=== PATIENT | male | born 1950 | race Caucasian/White ===

== ENCOUNTER 2023-07-25 20:34 | Emergency (ER) | payer MEDICARE, BC, SELFPAY ==
[2023-07-25 20:37] VITALS: BP 158/89; PULSE 62; RESP 18; TEMP 36.7; O2SAT 97; BMI 27.4
--- NOTE | 2023-07-25 20:56 | CRLHL7_ITS ---
For Patients: As a result of the Cures Act, medical imaging exams and procedure reports are released immediately into your electronic medical record. You may view this report before your referring provider. If you have questions, please contact your health care provider. INDICATION: Dog bite TECHNIQUE: Forearm radiograph 2 views right COMPARISON: None FINDINGS: Bone: No acute fractures or aggressive bone lesions are identified. Joint: The visualized radiocarpal and elbow joints are unremarkable, but the elbow joint is not profiled. If there is pain or tenderness in this region, dedicated views of the elbow are recommended. Soft tissue: Soft tissue gas from puncture or laceration wound is seen in the distal forearm. No radiopaque foreign bodies are seen. IMPRESSION: 1. No acute osseous injuries or abnormalities are noted. Dictated by Aubrey Bruno MD @ 07/25/2023 9:46:45 PM Dictated by: Aubrey Bruno MD @ 07/25/2023 21:46:51 (Electronically Signed)
--- NOTE | 2023-07-25 20:58 | ED_ITS ---
HPI - Animal Bite General Date Seen: 07/25/23 Chief Complaint: Animal Bite Stated Complaint: Left forearm dog bite Time Seen by Provider: 07/25/23 20:52 Source: patient Mode of arrival: ambulatory Limitations: no limitations History of Present Illness HPI narrative: Patient is a 73-year-old male with no pertinent medical problems presenting to emergency department for a right forearm dog bite. He states his is daughter as fully vaccinated has never act aggressively before. States he was trying to grab something near his dog when the dog got startled and bit him. No other concerns at this time. States he came in because there is a open laceration to forearm right thinks needs close. No other concerns at this time. They did not notice any chip or missing teeth from the dog after this Related Data Home Medications Medication Instructions Recorded Confirmed allopurinol 100 mg tablet 200 mg PO DAILY 07/25/23 07/25/23 oxybutynin chloride 5 mg 5 mg PO DAILY 07/25/23 07/25/23 tablet,extended release 24 hr Allergies Allergy/AdvReac Type Severity Reaction Status Date / Time amoxicillin [From Augmentin] Allergy Unknown Verified 07/25/23 20:43 clavulanic acid Allergy Unknown Verified 07/25/23 20:43 [From Augmentin] sulfamethoxazole Allergy Unknown Verified 07/25/23 20:43 [From Bactrim] trimethoprim [From Bactrim] Allergy Unknown Verified 07/25/23 20:43 ciprofloxacin [From Cipro] AdvReac Mild Vomiting Verified 07/25/23 20:43 Review of Systems Narrative: Negative unless stated HPI PFSH PFSH Social History Smoking Status: Never smoker Do you use any of these nicotine containing products: None Second hand tobacco smoke exposure: No How often do you have a drink containing alcohol: 2-3 times a week AUDIT-C Alcohol total score: 3 Non-prescribed substance use: denies use Exam Narrative: Exam Narrative: Const: Well-nourished, Well-developed, in mild distress Eyes: PERRL, no conjunctival injection, and symmetrical lids HENT: Atraumatic external nose and ears. Moist mucous membranes. MSK:Extremities w/o deformity, Normal Active ROM Skin: Warm, Dry. Multiple abrasions to right forearm with 1 on the medial aspect that appears amenable to repair Neuro: Normal Muscle tone, No focal neurological deficits. Psych: Awake, Alert, & Oriented x3. Appropriate mood and affect. Const: Vital Signs, click to edit/add: Vital Signs - 24 hr 07/25/23 20:37 Temperature 98.1 F Pulse Rate [Pulse Oximeter] 62 Respiratory Rate 18 Blood Pressure [Le ft Upper Arm] 158/89 H Pulse Oximetry 97 Oxygen Delivery Me thod Room Air Course Vital Signs Vital signs: Initial Vital Signs Temperature 98.1 F 07/25/23 20:37 Temperature Source Temporal Artery Scan 07/25/23 20:37 Pulse Rate 62 07/25/23 20:37 Respiratory Rate 18 07/25/23 20:37 Blood Pressure 158/89 H 07/25/23 20:37 Blood Pressure Mean 112 H 07/25/23 20:37 Blood Pressure Position Sitting 07/25/23 20:37 Pulse Oximetry 97 07/25/23 20:37 Oxygen Delivery Method Room Air 07/25/23 20:37 Vital Signs Temperature 98.1 F 07/25/23 20:37 Pulse Rate 62 07/25/23 20:37 Respiratory Rate 18 07/25/23 20:37 Blood Pressure 158/89 H 07/25/23 20:37 Pulse Oximetry 97 07/25/23 20:37 Oxygen Delivery Method Room Air 07/25/23 20:37 Temperature 98.1 F 07/25/23 20:37 Pulse Rate 62 07/25/23 20:37 Respiratory Rate 18 07/25/23 20:37 Blood Pressure 158/89 H 07/25/23 20:37 Pulse Oximetry 97 07/25/23 20:37 Oxygen Delivery Method Room Air 07/25/23 20:37 Medications Administered Medications: Generic Name Dose Route Start Last Admin Trade Name Freq PRN Reason Stop Dose Admin Diphtheria/Tetanus/Acell Pertussis 0.5 ml 07/25/23 22:28 07/25/23 22:34 Tetanus/Diphth/Pertussis 0.5 Ml Syringe IM 07/25/23 22:29 0.5 ml .ONCE ONE Administration MDM - Animal Bite MDM Narrative Medical decision making narrative: Patient 73-year-old male presenting to emergency department after a dog bite. It was his dog dog was showing no other aggressive behavior. He states dog bit of because it was startled. There is 1 laceration that is gaped open which I placed 1 suture loosely. Considering the size I believed this was necessary but the edges are not tight together to allow drainage. X-ray showed no signs of broken teeth or foreign bodies in the arm. His tetanus was from 2011 and was updated. He is otherwise doing well be discharged Augmentin prescribed through [facility]. I do not believe he needs rabies prophylaxis at this time as he can monitor his dog for signs of rabies and it is vaccinated Discharge Plan Discharge Clinical Impression: Dog bite Qualifiers: Encounter type: initial encounter Qualified Code(s): W54.0XXA - Bitten by dog, initial encounter Patient Disposition: Home, Self-Care Condition: Stable Instructions: Animal Bite (ED) Additional Instructions: If worsening pain or infection occurs follow-up in Urgent care or with primary doctor. Take antibiotics as directed. Since the dog is vaccinated and showed no signs of aggression, rabies is low risk. Follow-up with your primary care provider in the next 7 days to have the 1 sutures removed. For next 6 months, once sutures are removed, whenever you goes outside put a dab of sunscreen over the laceration site to improve scar appearance. Topical antibiotics are not necessary at this time. You can shower but do not submerge the laceration until sutures are removed Prescriptions: No Action allopurinol 100 mg tablet 200 mg PO DAILY oxybutynin chloride 5 mg tablet extended release 24hr 5 mg PO DAILY Follow Up/Referrals: Riki Cash MD [Primary Care Provider] - Stand Alone Forms: [employer] Info Instructions
--- NOTE | 2023-07-25 20:59 | ED.NURSE ---
[facility] non-emergency number called to report dog bite. They will send an officer to the hospital to speak with patient.
[2023-07-25] MEDS: TETANUS/DIPHTH/PERTUSSIS 0.5 ML SYRINGE IM (22:34)
== END 2023-07-25 22:43 | disposition home or self-care (01) ==
PROVIDERS: Emergency Provider Student in an Organized Health Care Education/Training Program; PCP Family Medicine
DX: S51.852A Open bite of left forearm, initial encounter (principal); W54.0XXA Bitten by dog, initial encounter
CPT/HCPCS: 12001; 73090; 90471; 90715; 99283

== ENCOUNTER 2023-12-29 12:26 | Day surgery (SDC) | payer MEDICARE, BC, SELFPAY ==
--- OUTSIDE RECORDS SUMMARY | 2023-12-29 12:31 | XMS_ITS ---
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 He did have a second biopsy done after an MRI was positive for 2 lesions. One of the lesions did show some aggression so the recommendation was to have a prostatectomy and he will be having this done with the [facility] robotic surgery. Urology associates-Dr. Jerome Current Oncology Plans No current plan information found. Past Plans No past plan information found. Radiation Treatments * Plan Last Treated On Elapsed Days Fractions Treated Prescribed Fraction Dose Prescribed Total Dose [id number] 07/15/2023 4 3 of 3 1,000 cGy 3,000 cGy Reference Point Last Treated On Elapsed Days Session Dose Total Dose [id number] 07/15/2023 4 1,000 cGy 3,000 cGy
--- OUTSIDE RECORDS SUMMARY | 2023-12-29 12:31 | XMS_ITS ---
Author Name Unknown Organization [facility] Address [address] [place] [address] Care Team Providers Care Virtualization Architect Name Role Phone Unavailable Unavailable Unavailable Surgery Details Not on file Complications Check Surgery Details section. Procedure Estimated Blood Loss Check Surgery Details section. Procedure Findings Check Surgery Details section. Procedure Specimens Taken Check Surgery Details section.
--- OUTSIDE RECORDS SUMMARY | 2023-12-29 12:31 | XMS_ITS | Clinical Summary ---
Author Name Unknown Organization [facility] Address [address] [place] [address] Care Team Providers Care Nail Sticker Name Role Phone Unavailable Primary Care Provider Unavailabl e Source Comments Patient records contain information from all sites at [facility]. For routine questions regarding patient records, call [phone] during business hours, M-F 8:00 AM - 5:00 PM Central Time. Record requests for emergency care only can be directed to [phone] at any time.[facility] Allergies Active Allergy Reactions Criticality Noted Date Comments Amoxicillin-Pot Clavulanate Hives (Reselect Reaction),Rash Medium 12/30/2006 Ciprofloxacin GI intolerance,Nause a And Vomiting Medium 08/10/2012 Indomethacin Other (see comments) Medium 02/14/2019 Leg swelling Sulfamethoxazole-Trimethop rim Rash Low 08/10/2012 Medications Medication Sig Dispensed Refills Start Date End Date Status allopurinoL (ZYLOPRIM) 100 mg tablet Take 200 mg by mouth. 10/04/2022 Active oxyBUTYnin (DITROPAN-XL) 5 mg 24 hr tablet Take 5 mg by mouth. 03/09/2022 Activ e predniSONE (DELTASONE) 10 mg tablet Start with 60 mg on day 1, then decrease by one tab daily until gone. 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 He did have a second biopsy done after an MRI was positive for 2 lesions. One of the lesions did show some aggression so the recommendation was to have a prostatectomy and he will be having this done with the [facility] robotic surgery. Urology associates-Dr. Jerome Encounters Date Type Department Care Team Description 10/21/2023 2:13 PM ACCOUNT SUPERVISOR - 10/21/2023 5:07 PM ACCOUNT SUPERVISOR Hospital Encounter Department of Radiation Oncology in [place] [id number] [place] [phone] Remi Lacy M.D. Rising Prostate Specific Antigen Following Treatment For Malignant Cancer Of Prostate (Primary Dx); Primary Malignant Neoplasm Of Prostate (HCC); Secondary Malignant Neoplasm Bone (HCC) 10/19/2023 10:00 AM [facility] Clinical Communication Virtual Review in [address] [id number] from Last 3 Months Immunizations Name Administration Dates Next Due Influenza (IM) Preservative Free 06/20/2013 Influenza TIV (IM) 06/13/2014, 2,06/16/2007,2006,07/21/2004 Influenza, Seasonal, Injectable 06/13/20 14,07/13/2012,06/16/2007,2006,07/21/2004 PCV13 05/26/2020 PCV20 10/04/2022 Tdap 07/25/2023,11/16/2011 influenza vaccine quad (FLUZONE/FLUARIX) (6 months and older)(PF) 06/13/2014,06/20/2013,07/13/2012,2006,08/16/2006,07/21/2004 Family History Medical History Relation Name Comments Prostate cancer Uncle Relation Name Status Comments Uncle Social History Tobacco Use Types Packs/Day Years Used Date Smoking Tobacco: Never Smokeless Tobacco: Never Tobacco Cessation:Counseling Given: Not Answered Alcohol Use Standard Drinks/Week Comments Yes 0 (1 standard drink = 0.6 oz pur e alcohol) [facility] Utilities Answer Date Recorded In the past 12 months has th e electric, gas, oil, or water company threatened to shut off services in your home? No 10/18/2023 Exercise Vital Sign Answer Date Recorde d On average, how many days pe r week do you engage in moderate to strenuous exercise (like a brisk walk)? 2 days 10/18/2023 On average, how many minutes do you engage in exercise at this level? 10 min 10/18/2023 Hunger Vital Sign Answer Date Recorded Within the past 12 months, y ou worried that your food would run out before you got the money to buy more. Never true 10/18/19 Within the past 12 months, t he food you bought just didn't last and you didn't have money to get more. Never true 10/18/2023 PRAPARE - Transportation Answer Date Re corded In the past 12 months, has l ack of transportation kept you from medical appointments or from getting medications? No 12/2023 In the past 12 months, has l ack of transportation kept you from meetings, work, or from getting things needed for daily living? No 10/18/2023 Nutrition Answer Date Recorded Nutrition: EVOO Fat Source Unknown 10/17 On average, how many serving s of fruits and vegetables do you eat per day (serving size is equal to 1 cup or approximately the size of a tennis ball)? 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 I have a [facility] place to live 10/18/2023 Sex and Gender Information Value Date Recorded Sex Assigned at Male 07/15/2023 9:06 AM ACCOUNT SUPERVISOR Gender Identity Male 07/15/2023 9:06 AM ACCOUNT SUPERVISOR Sexual Orientation Straight 07/15/2023 9: 06 AM ACCOUNT SUPERVISOR Last Filed Vital Signs Vital Sign Reading Time Taken Comments Blood Pressure 129/59 10/21/2023 2:26 PM ACCOUNT SUPERVISOR Pulse 51 10/21/2023 2:26 PM ACCOUNT SUPERVISOR Temperature 35.8 ??C (96.4 ??F) 10/21/2023 2:26 PM CS T Respiratory Rate - - Oxygen Saturation - - Inhaled Oxygen Concentration - - Weight 81 kg (178 lb 9.2 oz) 10/21/2023 2:26 PM ACCOUNT SUPERVISOR Height - - Body Mass Index - - Plan of Treatment Health Maintenance Due Date Last Done Comments CT Colonography 1952 Cologuard 1950 Colonoscopy 1950 Colorectal Cancer Screening 1950 FIT 1950 Hepatitis C Screening 1950 Zoster Vaccines (1 of 2) 1971 COVID-19 Vaccine ( season) 2023 09/03/2022, 01/13/2022, 07/14/2021, Additional history exists Influenza Vaccine (#1) 2023 4, 06/13/2014, 06/13/2014, Additional history exists Depression Screening (Annual PHQ-2) 08/15/2023 Fall Risk Screen (Annual) 08/15/2023 Fasting Glucose for Diabetes Screening 10/04/2025 10/04/2022, 10/24/2018, 04/11/2018, Additional history exists DTaP,Tdap,and Td Vaccines (3 - Td or Tdap) 07/25/2033 07/25/2023, 11/16/2011 Pneumococcal vaccine (65+ years) Completed 10/04/2022, 05/26/2020 HPV Vaccines Aged Out No longer eligi ble based on patient's age to complete this topic Procedures Procedure Name Priority Date/Time Associated Diagnosis Comments EXTI BASIC METABOLIC PANEL, S/P Routine 10/04/2022 2:34 PM ACCOUNT SUPERVISOR from Last 3 Months or Most Recently Relevant to Health Maintenance
--- OUTSIDE RECORDS SUMMARY | 2023-12-29 12:31 | XMS_ITS | Data Portability ---
Author Name Unknown Address [address] [place] [address] Phone [phone] Organization [facility], [facility] Address [address] [place] [address] Care Team Providers Care Ferris Wheel Attendant Name Role Phone [facility] Primary Care Provider [phone] Assessment No assessment recorded. Plan of Treatment Reminders Order Date Submit Date Provider Last Modified By Organization Details Last Modified Time Details Appointments None recorded. Lab PSA, serum or plasma 2022 023 [email or web address] 30 [facility], [address], [place], [address], 10:27:59 PSA, total, serum or plasma 2022 [email or web address] [facility], [address] [facility], [place], [address], 10:30:08 Referral None recorded. Procedures None recorded. Surgeries None recorded. Imaging PET-CT, skull base to mid-thigh scan - PSMA scan; Eyes to thighs 2022 023 [email or web address] 30 [facility], [address], [place], [address], 12:26:14 Medication Orders oxybutynin chloride ER 5 mg tablet,exte nded release 24 hr 2022 023 [facility], [address] [place], [address], 16:30:55 Patient TargetsNo targets recorded. Patient InstructionsNo instructions recorded. Reason for Referral Referring Physician: Nathen pichardo, Urology, Encounter Date: 06/10/2023 Results Created Date Observation Date Name Description Value Unit Range Abnormal Flag LastModifiedBy Organization Detail LastModifiedTime 05/11/2005/11/2023 PSA, serum or plasm a PSA 1.2ng/ mL 0-4.0 Not Available [facility] [address], [place], [address], 05/11/2023 10:27:48 07/09/2007/08/2021 PET-C T, skull base to mid-t high scan No observ ation record ed. [email or web address] [facility] [address], [place], [address], 07/14/2021 08:25:33 06/07/2006/06/2023 PET-C T, skull base to mid-t high scan No observ ation record ed. TIRSOPrismTechcan [facility] [address], [place], [address], 06/10/2023 15:21:42 Result Notes None recorded. Problems Name Status Onset Date Resolution Date Notes Provider Name and Address Organization Details Recorded Time Slowing of urinary stream Active 08/02/20 12 788.62 : SLOW STREAM Not Available [facility] 01/31/2020 02:05:55 Prostate specific antigen above reference range Active 08/02/20 12 790.93 : ELEVATED PSA Not Available [facility] 01/31/2020 02:05:55 Malignant tumor of prostate Active 11/10/19 17 C61 : Malignant neoplasm of prostate Not Available [facility] 01/31/2020 02:05:55 Problem Notes None recorded. Procedures Surgical History Date Name Laterality Status Provider Name and Address Organization Details Recorded Time 05/11/20 Blood Draw/PROFESSOR OF ECONOMICS/PSA RESULTS completed Tori paredes MS - [facility] 05/11/2023 10:27:44 Prostatectomy completed Nathen Russell MD [address], [place], [address], [facility] 10/25/2022 16:02:42 Imaging Results Imaging Date Name Status LastModified by Organiz ation Details LastModified Time 07/08/2021 PET-CT, skull base to mid-thigh scan completed [email or web address] [facility] [address], [place], [address], 07/14/2021 08:25:33 06/06/2023 PET-CT, skull base to mid-thigh scan completed [employer] [facility] [address], [place], [address], 06/10/2023 15:21:42 Procedure Notes None recorded. Medical Equipment None Reported. Allergies Allergen ID Allergen Name Allergen Category Reaction Reaction Severity Criticality Documentation Date Start Date Code Code System Note Provider Name and Address Organization Details Recorded Time 864078 Augmentin medicatio n Not available Not available Not available 01/31/20202011 82240 2 RxNorm Not Available [facility] 0 00:46:28 467978 Cipro medicatio n Not available Not available Not available 01/31/20202017 23157 3 RxNorm Not Available [facility] 0 00:46:28 321070 sulfameth oxazole / trimethop rim medicatio n Not available Not available Not available 01/31/20202017 64204 RxNorm Not Available [facility] 0 00:46:28 Medications Name Sig Start Date Stop Date Status Note LastModified by Organization Details LastModified Time prednisone 10 mg tablet 05/11 completed Not Available Not Available Not Available allopurinol 100 mg tablet active Not Available Not Availabl e Not Available oxybutynin chloride ER 5 mg tablet,extend ed release 24 hr TAKE ONE TABLET BY MOUTH ONCE DAILY 2023 active Not Available Not Available Not Avai lable gabapentin 300 mg capsule 05/11 completed Not Available Not Available Not Available Vitals Date Recorded Body height Body mass index (BMI) Body weight Provider Name and Address Organization Details Last Updated DateTime 10/25/2022 172.72 cm 28.1 kg/m2 68392.59 g Nathen Russell MD [address] [place] [address], [phone] [place] [address] 10/25/2022 16:01:10 Date Recorded Body height Body mass index (BMI) Body weight Provider Name and Address Organization Details Last Updated DateTime 05/11/2023 172.72 cm 28.1 kg/m2 04718.59 g Tori Proctor [facility] 05/11/2023 10:26:55 Social History Question Answer Notes LastModified by Organizat ion Details LastModified Time Tobacco Smoking Status Never Smoker Nathen Russell MD [address] [place] [address], [address], [facility] 10/25/2022 16:02:25 What Is Your Level Of Alcohol Consumption? Occasional Information not available 10/25/2022 What Is Your Level Of Caffeine Consumption? Occasional Information not available 10/25/2022 What Was The Date Of Your Most Recent Tobacco Screening? 05/11/2023 Information not available 05/11/2023 Sex: Male Functional Status None recorded. Mental Status None recorded. Family History Relationship Description Onset Age of this Age Resolved Age Notes Father Family history of stroke Mother Family history of stroke Medical History Condition Response Cancer Y Immunizations Vaccine Type Date Status Provider Name and Address Organization Details Recorded Time Pneumococcal conjugate PCV 13 05/26/2020 completed Nathen Russell MD [address] [place] [address],[address], [address], [facility] 10/25/2022 16:01:18 COVID-19, mRNA, LNP-S, PF, 30 mcg/0.3 mL dose 10/19/2020 beatrice paredes [facility] 05/11/2023 10:27:01 COVID-19, mRNA, LNP-S, PF, 30 mcg/0.3 mL dose 11/09/2020 beatrice paredes [facility] 05/11/2023 10:27:01 COVID-19, mRNA, LNP-S, PF, 30 mcg/0.3 mL dose 07/14/2021 [facility] 10:27:01 Pneumococcal conjugate PCV20, polysaccharide [id number] conjugate, adjuvant, PF 10/04/2022 [facility] 10:27:01 COVID-19, mRNA, LNP-S, PF, 30 mcg/0.3 mL dose, zoila-sucrose 01/13/2022 [facility] 10:27:01 COVID-19, mRNA, LNP-S, bivalent, PF, 30 mcg/0.3 mL dose 09/03/2022 [facility] 10:27:01 Tdap 11/16/2011 [facility] 10:27:01 Influenza, seasonal, injectable 08/16/2006 [facility] 10:27:01 Influenza, seasonal, injectable 06/13/2014 [facility] 10:27:01 Influenza, seasonal, injectable 06/16/2007 [facility]2023 10:27:01 Influenza, seasonal, injectable 07/13/2012 [facility] 10:27:01 Influenza, seasonal, injectable 07/21/2004 [facility]23 10:27:01 Influenza, seasonal, injectable, preservative free 06/20/2013 [facility] 10:27:01 Past Encounters Encounter ID Performer Location Encounter Start Date Encounter Closed Date Diagnosis/Indication Diagnosis SNOMED-CT Code [id number] Nathen Russell MD [facility] [address] [place] [address] 10/25/2022 15:28:39 10/29/2022 12:55:06 Carcinoma of prostate 097225193 Overactive bladder 62168 7000 Kidney stone 51710335 Malignant tumor of prostate 632203172 [id number] Nathen Russell MD [facility] [address] [place] [id number] 05/11/2023 09:48:03 05/23/2023 14:38:37 Carcinoma of prostate 705515978 Overactive bladder 00005 7000 Kidney stone 29416861 Malignant tumor of prostate 891148003 Health Concerns Section Related Observation LastModified by Organization Detai ls LastModified Time None Recorded Concern Status LastModified by Organization Details LastModified Time None Recorded Advance Directives Directive None Recorded Payers Encounter Date Sequence Insurance Name Policy Number Policy Mccaluey Covered Member ID Mccauley Member ID Guarantor Name 05/11/2023 1 [place] [id number] Richard Marc [id number] Richard Marc 10/25/2022 1 [place] [id number] Richard Marc [id number] Richard Marc Notes Date Note Type Note Provider Name and Address Organization Details Recorded Time 10/25/2022 text/html HPI Notes: 72 yo male - dx (11/02/16) with Prostate cancer - pT2 No Mx - [place] 4+3 = 7 - s/p RALP on 01/30/18 - (margins were negative), kidney stones (100% Calcium oxalate monohydrate), and microscopic hematuria (negative evaluation by Dr. Simpson in 2012). His PSA has fluctuated over the past few years - no prior prostate (TRUS ) bx. + Family H/O prostate cancer - maternal uncle. He is on Flomax 0.4 mg daily. + uses CPAP. He noted some blood in the semen in May 2016. He developed flank pain in March 2018 - CT scan revealed a 3 mm Left UVJ stone. He underwent Left ureteroscopy by Dr. Westbrook on 04/12/18. He is on Oxybutynin ER 5 mg daily. - s/p RALP on 01/30/18 - pT2 No Mx - [place] 4+3 = 7 - margins were negative - s/p Left ureteroscopy with HLL - (04/12/18) - Dr. Westbrook 06/08/21 - He presents for follow-up on prostate cancer. He notes no change in urination. He voids every 1-3 hours during the day and 0-1x/night. He denies urgency or dysuria. He has rare incontinence with sneeze / cough. No erections. 10/25/22 - He presents for follow-up on Prostate cancer. He voids every 1-3 hours during the day and 0-1x/night. He denies urgency or dysuria. He has rare incontinence with sneeze / cough. No erections. __ PSA - 6.20 (10/10/17) - < 0.03 (04/11/18) - < 0.03 (07/17/18) - < 0.03 (10/24/18) - 0.04 (02/26/19) - 0.07 (05/31/19) - 0.12 (09/06/19) - 0.10 (12/06/19) - 0.11 (04/09/20) - 0.13 (07/14/20) - 0.15 (10/28/20) - 0.27 (03/06/21) - 2.99 (06/05/21) - 3.29 (06/12/21) - 2.14 (07/24/21) - 0.34 (11/06/21) - 0.46 (02/23/22) - 0.80 ( - 0.7 (10/19/22) CT scan (02/26/19) - no stones in either kidney CT scan (06/12/21) - enlarge (1.5 cm) lymph node by the Left internal iliac artery Axumin PET scan (07/08/21) - negative for radiotracer avid metastatic disease Nathen Russell MD [address] [facility],[address], [place], [address], [facility] - [facility] 10/25/2022 21:58:17 05/11/2023 text/html HPI Notes: 73 yo male - dx (11/02/16) with Prostate cancer - pT2 No Mx - [place] 4+3 = 7 - s/p RALP on 01/30/18 - (margins were negative), kidney stones (100% Calcium oxalate monohydrate), and microscopic hematuria (negative evaluation by Dr. Simpson in 2012). His PSA has fluctuated over the past few years - no prior prostate (TRUS ) bx. + Family H/O prostate cancer - maternal uncle. He is on Flomax 0.4 mg daily. + uses CPAP. He noted some blood in the semen in May 2016. He developed flank pain in March 2018 - CT scan revealed a 3 mm Left UVJ stone. He underwent Left ureteroscopy by Dr. Westbrook on 04/12/18. He is on Oxybutynin ER 5 mg daily. - s/p RALP on 01/30/18 - pT2 No Mx - [place] 4+3 = 7 - margins were negative - s/p Left ureteroscopy with HLL - (04/12/18) - Dr. Westbrook 10/25/22 - He presents for follow-up on Prostate cancer. He voids every 1-3 hours during the day and 0-1x/night. He denies urgency or dysuria. He has rare incontinence with sneeze / cough. No erections. 05/11/23 - He presents for follow-up on Prostate cancer. He voids every 1-3 hours during the day and 0-1x/night. He reports rare incontinence with sneeze / cough. No erections. - PSA - 1.2 __ PSA - 6.20 (10/10/17) - < 0.03 (04/11/18) - < 0.03 (07/17/18) - < 0.03 (10/24/18) - 0.04 (02/26/19) - 0.07 (05/31/19) - 0.12 (09/06/19) - 0.10 (12/06/19) - 0.11 (04/09/20) - 0.13 (07/14/20) - 0.15 (10/28/20) - 0.27 (03/06/21) - 2.99 (06/05/21) - 3.29 (06/12/21) - 2.14 (07/24/21) - 0.34 (11/06/21) - 0.46 (02/23/22) - 0.80 ( - 0.7 (10/19/22) - 1.2 (05/11/23) CT scan (02/26/19) - no stones in either kidney CT scan (06/12/21) - enlarge (1.5 cm) lymph node by the Left internal iliac artery Axumin PET scan (07/08/21) - negative for radiotracer avid metastatic disease Nathen Russell MD [address], [place], [address], [facility] 05/11/2023 11:38:10
--- OUTSIDE RECORDS SUMMARY | 2023-12-29 12:31 | XMS_ITS | Referral Summary ---
Author Name Unknown Organization [facility] Address [address] [place] [address] Care Team Providers Care Nurse Clinician Name Role Phone Unavailable Primary Care Provider Unavailabl e Source Comments Patient records contain information from all sites at [facility]. For routine questions regarding patient records, call [phone] during business hours, M-F 8:00 AM - 5:00 PM Central Time. Record requests for emergency care only can be directed to [phone] at any time.[facility] Encounters Date Type Department Care Team Description 10/21/2023 2:13 PM ACCOUNT RESOLUTION EXPERT - 10/21/2023 5:07 PM [facility] Hospital Encounter Department of Radiation Oncology in [place], [place] [address] [place] [address] Remi Lacy M.D. Rising Prostate Specific Antigen Following Treatment For Malignant Cancer Of Prostate (Primary Dx); Primary Malignant Neoplasm Of Prostate (HCC); Secondary Malignant Neoplasm Bone (HCC) 10/19/2023 10:00 AM [facility] Clinical Communication Virtual Review in [place], [place] [address] [place] [address] from Last 3 Months Allergies Active Allergy Reactions Criticality Noted Date [...] IIA(T2a, N0, cM0, PSA: Less than 10, [place] 7) - Unsigned Overview: Richard has had his PSAs followed closely for little over a year. He did have a second biopsy done after an MRI was positive for 2 lesions. One of the lesions did show some aggression so the recommendation was to have a prostatectomy and he will be having this done with the [facility] robotic surgery. Urology associates-Dr. Jerome Immunizations Name Administration Dates Next Due Influenza (IM) Preservative Free 06/20/2013 Influenza TIV (IM) 06/13/2014, 2,06/16/2007,2006,07/21/2004 Influenza, Seasonal, Injectable 06/13/20 14,07/13/2012,06/16/2007,2006,07/21/2004 PCV13 05/26/2020 PCV20 10/04/2022 Tdap 07/25/2023,11/16/2011 influenza vaccine quad (FLUZONE/FLUARIX) (6 months and older)(PF) 06/13/2014,06/20/2013,07/13/2012,2006,08/16/2006,07/21/2004 Social History Tobacco Use Types Packs/Day Years Used Date Smoking Tobacco: Never Smokeless Tobacco: Never Tobacco Cessation:Counseling Given: Not Answered Alcohol Use Standard Drinks/Week Comments Yes 0 (1 standard drink = 0.6 oz pur e alcohol) [facility] Utilities Answer Date Recorded In the past [...] your living situation today? I have a [facility] place to live 10/18/2023 Sex and Gender Information Value Date Recorded Sex Assigned at Male 07/15/2023 9:06 AM ACCOUNT RESOLUTION EXPERT Gender Identity Male 07/15/2023 9:06 AM ACCOUNT RESOLUTION EXPERT Sexual Orientation Straight 07/15/2023 9: 06 AM ACCOUNT RESOLUTION EXPERT Last Filed Vital Signs Vital Sign Reading Time Taken Comments Blood Pressure 129/59 10/21/2023 2:26 PM ACCOUNT RESOLUTION EXPERT Pulse 51 10/21/2023 2:26 PM ACCOUNT RESOLUTION EXPERT Temperature 35.8 ??C (96.4 ??F) 10/21/2023 2:26 PM CS T Respiratory Rate - - Oxygen Saturation - - Inhaled Oxygen Concentration - - Weight 81 kg (178 lb 9.2 oz) 10/21/2023 2:26 PM ACCOUNT RESOLUTION EXPERT Height - - Body Mass Index - - Plan of Treatment Not on file Procedures Procedure Name Priority Date/Time Associated Diagnosis Comments EXTI BASIC METABOLIC PANEL, S/P Routine 10/04/2022 2:34 PM ACCOUNT RESOLUTION EXPERT from Last 3 Months or Most Recently Relevant to Health Maintenance
--- OUTSIDE RECORDS SUMMARY | 2023-12-29 12:32 | XMS_ITS | Clinical Summary ---
Author Name Unknown Organization [facility] Address [place], [place] [address] Care Team Providers Care Literacy Specialist Name Role Phone Maciej Simpson MD Unavailable [phone] Bambi Patricio MD Primary Care Provider Allergies Active Allergy Reactions Criticality Noted Date Comments Amoxicillin-Pot Clavulanate Hives,Rash Medium 12/30/2006 Sulfamethoxazole-Trimethop rim Rash Low 08/10/2012 Ciprofloxacin Nausea And Vomiting,Vomiting Medium 08/10/2012 Indomethacin Other - Describe In Comment Field Medium 02/14/2019 Leg swelling Medications Medication Sig Dispensed Refills Start Date End Date Status oxybutynin XL (DITROPAN XL) 5 mg CR tabletIndications :Urinary urgency Take 1 Tablet (5 mg) by mouth once daily. 90 Tablet 1 03/09/2022 Active CPAPIndications:O SA (obstructive sleep apnea) replacement CPAP machine for home use at pressure: 5-16 cmw , Heated humidifier x 1 q 5 yr, Humidifier chamber x 1 q 6 mo, nasal mask x1 q 3mos, with cushion x 2 q mo, Heated tubing x 1 q 3 mo, Headgear x 1 q 6 mo, Filters: Disposable x 2 q mo non-disposable filters x1 q 6mo, Length of Need: 99 months, Frequency of use: Daily 1 Each 11 06/06/2023 Active allopurinoL (ZYLOPRIM) 100 mg tabletIndications :Gouty arthropathy TAKE 2 TABLETS BY MOUTH ONCE DAILY. 180 Tablet 11/09/2023 Active doxycycline monohydrate (MONODOX) 100 mg capsule 07/25/2023 4 Discontinue d(*Med complete/Re gimen complete/Le luigi of care change) predniSONE (DELTASONE) 10 mg tabletIndications :Prepatellar bursitis of right knee Start with 60 mg on day 1, then decrease by one tab daily until gone. 21 Tablet 10/18/2023 4 Discontinue d(*Med complete/Re gimen complete/Le luigi of care change) Active Problems Problem Noted Date Diagnosed Date Urinary tract infection without hematuria 2017 Ureteral stone with hydronephrosis 04/10/2018 Overview: 4 mm stone removed from L ureter per scope Bradycardia 08/02/2017 Prostate cancer 05/02/2017 Overview: Richard has had his PSAs followed closely for little over a year. He did have a second biopsy done after an MRI was positive for 2 lesions. One of the lesions did show some aggression so the recommendation was to have a prostatectomy and he will be having this done with the [facility] robotic surgery. Urology associates-Dr. 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 Overview: Nl CXR on 12/26/09 and low risk of reinfection therefore no treatment recommended Impaired fasting glucose 10/29/2009 Sensorineural hearing loss, bilateral 04/12/2008 Mixed hyperlipidemia 06/16/2007 Gouty Arthropathy 06/16/2007 Overview: 1996 Overweight(278.02) 06/16/2007 Lipoma of other skin and subcutaneous tissue 09/2006 Overview: L shoulder recurrent Resolved Problems Problem Noted Date Diagnosed Date Resolved Date Dyslipidemia 10/24/2018 10/24/2018 Sepsis 04/10/2018 10/24/2018 Lower urinary tract symptoms (LUTS) 06/01/2017 02/10/2018 Elevated PSA 05/26/2016 06/01/2017 Benign prostatic hyperplasia with lower urinary tract symptoms 06/16/2007 02/10/2018 Encounters Date Type Department Care Team Description 12/28/2023 10:00 AM CDT Preop Visit [facility] [place] [address] Bambi Patricio MD Preoperative Exam (Inguinal hernia repair, Dr. De La Paz, [facility], 12/29/2023) 12/27/2023 2:45 PM CDT Office [place] [address] [place] [address] Shakira De La Paz MD Consult (Right inguinal hernia referred by Dr. Patricio) 12/27/2023 Travel 12/21/2023 1:05 PM CDT Office Visit [facility] [place] [address] Bambi Patricio MD Abdominal Pain (wants to discuss repair of hernia) 12/21/2023 Travel 11/09/2023 Orders Only [address] [place] [address] Bambi Patricio MD Outside Order (Ordered by Ivory Barnard... 11/08/[address] [place] [address] Bambi Patricio MD Refill Request (Allopurinol) 10/18/2023 8:15 AM BINGO WORKER Ancillary Procedure [address] [address] 10/18/2023 7:25 AM BINGO WORKER Office Visit [address] [address] Manjula White PA Knee Pain/problem (right knee pain 3 days no injury, IB helped a little) 10/18/2023 Travel 10/05/2023 8:15 AM BINGO WORKER Orders Only [address] [place] [address] [facility] Outside Order (Dr. Remi Lacy) 10/05/2023 Travel 10/02/2023 Travel from Last 3 Months Immunizations Name Administration Dates Next Due COVID-19 vaccine (Pfizer-Bio NTech 30mcg/0.3mL) 12YO+ BIVALENT PF, MDV 09/03/2022 COVID-19 vaccine (Pfizer-Bio NTech 30mcg/0.3mL) 12YO+ ZENY-SUCROSE PF, MDV 01/13/2022 COVID-19 vaccine (Pfizer-Bio NTech 30mcg/0.3mL) PF, MDV 07/14/2021,11/09/2020,10/19/2020 Influenza, IIV3 (Age 6-35 mos) 06/20/2013 Influenza, IIV3 (Age >=3 years) 06/13/20 14,07/13/2012,06/16/2007,2006,07/21/2004 Influenza, IIV4 06/13/2014, 3,07/13/2012,2006,08/16/2006,07/21/2004 Pneumococcal Conj 20-valent (Prevnar 20) 10/04/2022 Pneumococcal conj 13-Valent (Prevnar 13) 05/26/2020 Td (Age >=7 Years) 04/17/2002 Tdap 07/25/2023,11/16/2011 Family History Medical History Relation Name Comments Cancer-colon Brother partial colecto my Other Father myeloproliferat pawan d/o d 80 yo Cancer-prostate Maternal Uncle maternal u ncle Heart Disease Mother heart surgery for hole in the heart Stroke Mother at 88 yo Hyperlipidemia Sister Relation Name Status Comments Brother Father Maternal Uncle Mother Sister colon polyp Social History Tobacco Use Types Packs/Day Years Used Date Smoking Tobacco: Never Smokeless Tobacco: Never Tobacco Cessation:Counseling Given: Yes Comments:never Alcohol Use Standard Drinks/Week Comments Yes 0 (1 standard drink = 0.6 oz pur e alcohol) occas PHQ-2 Answer Date Recorded PHQ-2 TOTAL SCORE 0 12/28/2023 Social Connections Answer Date Recorded Frequency of Communication with Friends and Fami ly 0 08/03/2023 Financial Resource Strain Answer Date R ecorded Difficulty of Paying Living Expenses 3 08/03/2023 Difficulty of Paying Living Expenses Not on file 08/03/2023 Food Insecurity Answer Date Recorded Worried About Running Out of Food in the Last Ye ar 1 08/03/2023 Transportation Needs Answer Date Record ed Lack of Transportation (Medical) 1 08/03/2023 Housing Stability Answer Date Recorded Unable to Pay for Housing in the Last Year 1 08/03/2023 Sex and Gender Information Value Date Recorded Sex Assigned at Not on file Gender Identity Not on file Sexual Orientation Not on file Obstetrics History Last Filed Vital Signs Vital Sign Reading Time Taken Comments Blood Pressure 124/74 12/28/2023 10:08 AM CDT Pulse 55 12/28/2023 10:08 AM CDT Temperature 36.7 ??C (98 ??F) 12/03/2021 9:44 AM CDT Respiratory Rate 16 06/08/2021 2:42 PM CDT Oxygen Saturation 97% 12/28/2023 10:08 AM CDT Inhaled Oxygen Concentration - - Weight 78.7 kg (173 lb 9.6 oz) 12/28/2023 10:08 AM CDT Height 170 cm (5' 6.93) 12/28/2023 10:08 AM CDT Body Mass Index 27.25 12/28/2023 10:08 AM CDT Plan of Treatment Health Maintenance Due Date Last Done Comments Zoster (shingles) series for age 50+ (1 of 2) 1971 COVID-19 vaccine series (2022- season) 2023 09/03/2022, 01/13/2022, 07/14/2021, Additional history exists Fecal testing non-DNA (FIT,FOBT,iFOBT) for age 45-75 05/24/2023 05/24/2022 Medicare Wellness for age 65+ 10/05/2023 10/04/2022 Influenza for age 65+ 04/15/2024 06/13/2014 , 06/13/2014, 06/20/2013, Additional history exists BMI (ht and wt on same day) for age 18+ 12/27/2024 12/28/2023, 10/04/2022, 11/19/2020, Additional history exists Depression screening for age 12+ 12/27/2024 12/28/2023, 10/05/2022, 10/04/2022, Additional history exists Lipids for age 45-75 10/04/2027 10/04/2022, 10/24/2018, 06/01/2017, Additional history exists Tetanus booster 07/25/2033 07/25/2023, 04/0 10/2011, 11/16/2011, Additional history exists Hepatitis C screening for ag e 18-79 Completed 07/09/2014 Pneumococcal series for age 65+ Completed 3, 05/26/2020 Tdap Completed 07/25/2023, 11/16/2011 Medical Devices Implanted Type Area Parent Educator Device Identifier Shelf Expiration Date Model / Serial / Lot Stent Uret [id number] [facility] - [id number] Implanted:Qty: 1 on 04/12/2018 by Shruti Westbrook MD at [facility] Left: Ureter [employer] Ramon 12/27/2019 [id number] / / [id number] Procedures Procedure Name Priority Date/Time Associated Diagnosis Comments XR KNEE 3 VIEWS RIGHT NATHAN 10/18/2023 8:13 AM BINGO WORKER Acute pain of right knee CBC WITH AUTO DIFFERENTIAL Routine 10/18/2023 8:04 AM BINGO WORKER Acute pain of right knee C-REACTIVE PROTEIN STAT 10/18/2023 8: 04 AM BINGO WORKER Acute pain of right knee URIC ACID Routine 10/18/2023 8:04 AM BINGO WORKER Acute pain of right knee CBC WITH AUTO DIFFERENTIAL Routine 10/18/2023 8:04 AM BINGO WORKER Acute pain of right knee PSA TOTAL (DIAGNOSTIC) Routine 10/05/2023 8:22 AM BINGO WORKER Increasing prostate specific antigen (PSA) level after treatment for malignant neoplasm of prostate Secondary malignant neoplasm of bone and bone marrow (HC) LC LIPID PANEL AND CHOL/HDL RATIO Routine 10/04/2022 2:34 PM BINGO WORKER Mixed hyperlipidemia OCCULT BLOOD IFOBT STOOL Routine 05/24/2022 12:00 PM CDT Screening for colon cancer ANTI HCV Routine 07/09/2014 11:00 AM BINGO WORKER Need for hepatitis C screening test from Last 3 Months or Most Recently Relevant to Health Maintenance Results * XR KNEE 3 VIEWS RIGHT (10/18/2023 8:13 AM BINGO WORKER) Anatomical Region Laterality Modality KNEES, KNEE R Computed Radiogr aphy 10/18/2023 8:26 AM BINGO WORKER Impressions 10/18/2023 8:26 AM BINGO WORKER Soft tissue swelling anterior to the right patella. Otherwise, normal right knee radiographs. Dictated by Liana Rosenberg MD @ 10/18/2023 8:26:41 AM (Electronically Signed) Narrative 10/18/2023 8:26 AM BINGO WORKER For Patients: ??As a result of the Cures Act, medical imaging exams and procedure reports are released immediately into your electronic medical record. ??You may view this report before your referring provider. ??If you have questions, please contact your health care provider. INDICATION: Acute pain of right knee COMPARISON: 03/01/2018 TECHNIQUE: Three views right knee FINDINGS: No fracture. Normal alignment. Joint spaces are normal. No focal bone lesions. Normal bone mineralization. No knee joint effusion. Soft tissue swelling anterior to the patella. The quadriceps tendon and patellar tendon silhouettes are normal. No foreign body. Procedure Note Liana Rosenberg MD - 10/18/2023 For Patients: As a result of the Cures Act, medical imagingexams and procedure reports are released immediately into your electronicmedical record. You may view this report before your referring provider.If you have questions, please contact your health care provider. INDICATION: Acute pain of right knee COMPARISON: 03/01/2018 TECHNIQUE: Three views right knee FINDINGS: No fracture. Normal alignment. Joint spaces are normal. No focal bone lesions. Normal bone mineralization. No knee joint effusion. Soft tissue swelling anterior to the patella. Thequadriceps tendon and patellar tendon silhouettes are normal. No foreign body. IMPRESSION: Soft tissue swelling anterior to the right patella. Otherwise, normalright knee radiographs. Dictated by Liana Rosenberg MD @ 10/18/2023 8:26:41 AM (Electronically Signed) Manjula Delaney Valentines PA GENERAL IMAGIN G * (ABNORMAL) CBC WITH AUTO DIFFERENTIAL (10/18/2023 8:04 AM BINGO WORKER) [facility] WHITE BLOOD COUNT 8.0 4.5 - 11.0 thou/cu mm 10/18/2023 8:[address] [facility] RED BLOOD COUNT 4.97 4.30 - 5.90 mil/cu mm 10/18/2023 8:[address] [facility] HEMOGLOBIN 15.0 13.5 - 17.5 g/dL 10/18/2023 8:[address] [facility] HEMATOCRIT 43.9 37.0 - 53.0 % 10/18/2023 8:[address] [facility] MCV 88 80 - 100 fL 10/18/2023 8:[address] [facility] MCH 30.2 26.0 - 34.0 pg 10/18/2023 8:[address] [facility] MCHC 34.2 32.0 - 36.0 g/dL 10/18/2023 8:[address] [facility] RDW 13.9 11.5 - 15.5 % 10/18/2023 8:[address] [facility] PLATELET COUNT 208 140 - 440 thou/cu mm 10/18/2023 8:[address] [facility] MPV 10.5 6.5 - 11.0 fL 10/18/2023 8:[address] [facility] % NEUT 68.0 % 10/18/2023 8:[address] [facility] % LYMPH 17.0 % 10/18/2023 8:[address] [facility] % MONO 12.1 % 10/18/2023 8:[address] [facility] % EOS 2.6 % 10/18/2023 8:[address] [facility] % BASO 0.3 % 10/18/2023 8:[address] [facility] ABSOLUTE NEUTROPHILS 5.4 1.7 - 7.0 thou/cu mm 10/18/2023 8:[address] [facility] ABSOLUTE LYMPHOCYTES 1.4 0.9 - 2.9 thou/cu mm 10/18/2023 8:09 AM BINGO WORKER [facility] ABSOLUTE MONOCYTES 1.0(H) <0.9 thou/cu mm 10/18/2023 8:09 AM BINGO WORKER [facility] ABSOLUTE EOSINOPHILS 0.2 <0.5 thou/cu mm 10/18/2023 8:09 AM BINGO WORKER [facility] ABSOLUTE BASOPHILS 0.0 <0.3 thou/cu mm 10/18/2023 8:09 AM BINGO WORKER [facility] Blood BLOOD SPECIMEN / Unknown Venipuncture / Unknown 10/18/2023 8:04 AM BINGO WORKER 10/18/2023 8:05 AM BINGO WORKER Manjula GARCIA HEMATOLOGY [facility] [address] [place] [address], * C-REACTIVE PROTEIN (10/18/2023 8:04 AM BINGO WORKER) C-REACTIVE PROTEIN 0.3 <0.5 mg/dL 10/18/2023 2:15 PM BINGO WORKER [facility] Blood BLOOD SPECIMEN / Unknown Venipuncture / Unknown 10/18/2023 8:04 AM BINGO WORKER 10/18/2023 8:05 AM BINGO WORKER Manjula GARCIA CHEMISTRY [facility] [address] [place] [address], * URIC ACID (10/18/2023 8:04 AM BINGO WORKER) URIC ACID 4.9 3.4 - 7.0 mg/dL 10/18/2023 2:00 PM BINGO WORKER [facility] Blood BLOOD SPECIMEN / Unknown Venipuncture / Unknown 10/18/2023 8:04 AM BINGO WORKER 10/18/2023 8:05 AM BINGO WORKER Manjula GARCIA [facility] [address] [place] [address], * PSA TOTAL (DIAGNOSTIC) (10/05/2023 8:22 AM BINGO WORKER) Pathologist [facility] PSA TOTAL (DIAGNOSTIC) 0.64 <4.00 ng/mL 10/05/2023 1:28 PM BINGO WORKER [facility] Blood BLOOD SPECIMEN / Unknown Venipuncture / Unknown 10/05/2023 8:22 AM BINGO WORKER 10/05/2023 8:23 AM BINGO WORKER Narrative [facility] - 10/05/2023 1:28 PM BINGO WORKER The test method changed on 02/08/2023. If this test has been used for serial monitoring, rebaselining is recommended. Rebaselining consists of 2 measurements, collected 3-6 weeks apart. The Siri Elecsys total PSA assay is an electrochemiluminescence immunoassay ECLIA performed on the Siri Reyna e immunoassay analyzers. Values obtained with different assay methods may be different and cannot be used interchangeably. Bambi Patricio MD CHEMISTRY Performing Organization Address City/[facility]/ZIP Co de Phone Number [facility] [address] [place] [address], * (ABNORMAL) LC LIPID PANEL AND CHOL/HDL RATIO (10/04/2022 2:34 PM BINGO WORKER) Cholesterol, Total 166 100 - 199 mg/dL 10/06/2022 10:10 AM [facility] Triglycerides 160(H) 0 - 149 mg/dL 10/06/2022 10:10 AM BINGO WORKER [facility] HDL Cholesterol 39(L) >39 mg/dL 10:10 AM [facility] VLDL Cholesterol Rachid 28 5 - 40 mg/dL 10/06/2022 10:10 AM [facility] LDL Chol Calc (NIH) 99 0 - 99 mg/dL 10/06/2022 10:10 AM BINGO WORKER [facility] T. Chol/HDL Ratio 4.3 0.0 - 5.0 ratio 10/06/2022 10:10 AM [facility] Comment: ?T. Chol/HDL Ratio ?Men ??Women ?1/2 Avg.Risk ??3.4 ?3.3 ?Avg.Risk ??5.0 ?4.4 ? 2X Avg.Risk ??9.6 ?7.1 ? 3X Avg.Risk 23.4 ?? 11.0 Blood BLOOD SPECIMEN / Unknown Venipuncture / Unknown 10/04/2022 2:34 PM BINGO WORKER 10/04/2022 2:36 PM BINGO WORKER Narrative [facility] - 10/06/2022 10:10 AM BINGO WORKER Performed at: ??01 - [facility], [place] ??[id number] Critical Power Install Technician: Rich Jarvis MD, Phone: ??[phone] Bambi Patricio MD SEND OUTS [facility] ([facility]) [address] [place] [address], * OCCULT BLOOD IFOBT STOOL (05/24/2022 12:00 PM CDT) STOOL BLOOD ,IFOBT Negative Negative 05/28/2022 10:27 AM CDT [facility] Stool STOOL SPECIMEN / Unknown Non-Blood / Unknown 05/24/2022 12:00 PM CDT 05/28/2022 8:29 AM CDT Riki Cash MD LABORATORY [facility] [address] [place] [address], * ANTI HCV [65431.2] (07/09/2014 11:00 AM BINGO WORKER) HEPATITIS C ANTIBODY Non-Reacti ve Non-Reacti ve 07/09/2014 4:29 PM BINGO WORKER [facility] Blood specimen (specimen) BLOOD SPECIMEN / Unknown Venipuncture / Unknown 07/09/2014 11:00 AM BINGO WORKER 07/09/2014 11:00 AM BINGO WORKER Narrative [facility] - 07/09/2014 4:29 PM BINGO WORKER Antibodies to HCV not detected; does not exclude the possibility of exposure to HCV. Riki Cash MD SEND OUTS [facility] [address] [place] [address], [place] from Last 3 Months or Most Recently Relevant to Health Maintenance Additional Health Concerns Infection Onset Date Last Indicated Rule-Out C.diff 03/07/2020 03/07/2020 Advance Directives * Full Code (Latest Code Status on File) Date Activated Date Inactivated Comments 04/10/2018 4:43 PM 04/12/2018 6:23 PM Question Answer Comments Code Status Discussion: Not Discussed Care Teams Literacy Specialist Relationship Specialty Start Date End Date Bambi Patricio MD [address] [place] [address] PCP - General Family Practice 10/04/22 Maciej Simpson MD Urology Surgery - Urology 07/17/12
--- OUTSIDE RECORDS SUMMARY | 2023-12-29 12:32 | XMS_ITS | Encounter Summary ---
Author Name Unknown Organization [facility] Address [address] [place] [address] Care Team Providers Care Offset Duplicating Machine Operator Name Role Phone Unavailable Primary Care Provider Unavailabl e Encounter Details Date Type Department Care Team (Latest Contact Info) Description 10/19/2023 10:00 AM PLATING OPERATOR Clinical Communication Virtual Review in [place], [place] [address] [place] [address] Social History Tobacco Use Types Packs/Day Years Used Date Smoking Tobacco: Never Smokeless Tobacco: Never Alcohol Use Standard Drinks/Week Comments Yes 0 (1 standard drink = 0.6 oz pur e alcohol) [facility] Utilities Answer Date Recorded In the [...] money to buy more. Never true 10/18/19 24 Within the past 12 months, t he [...] Date Recorded Employment status Working with temporary [employer] 10/18/2023 Housing Stability Answer Date Recorded What is your living situation today? I have a [facility] place to live 10/18/2023 Sex and Gender Information Value Date Recorded Sex Assigned at Male 07/15/2023 9:06 AM PLATING OPERATOR Gender Identity Male 07/15/2023 9:06 AM PLATING OPERATOR Sexual Orientation Straight 07/15/2023 9: 06 AM PLATING OPERATOR documented as of this encounter Plan of Treatment Not on file documented as of this encounter Visit Diagnoses Not on filedocumented in this encounter
--- OUTSIDE RECORDS SUMMARY | 2023-12-29 12:32 | XMS_ITS | Encounter Summary ---
Author Name Unknown Organization [facility] Address [address] [place] [id number] Care Team Providers Care Sterilization Specialist Name Role Phone Unavailable Primary Care Provider Unavailabl e Reason for Referral * Outpatient (Routine) - Closed Specialty Diagnoses / Procedures Referred By Lbac t Referred To Contact Radiation Oncology Remi Lacy M.D. [address] [place] [phone] [facility] Region Referral ID Status Reason Start Date Expiration Date Visits Re quested Visits Authorized [id number] Closed 07/13/2023 07/12/2026 1 1 Scheduling Instructions PSA at [facility] 1 week prior [employer] Reason for Visit * Outpatient (Routine) - Closed Specialty Diagnoses / Procedures Referred By Contac t Referred To Contact Radiation Oncology Remi Lacy M.D. [address] [place] [phone] [facility] Region Referral ID Status Reason Start Date Expiration Date Visits Re quested Visits Authorized [id number] Closed 07/13/2023 07/12/2026 1 1 Encounter Details Date Type Department Care Team (Latest Contact Info) Description 10/21/2023 2:13 PM [employer]CR[employer] - 10/21/2023 5:07 PM [employer] Hospital Encounter Department of Radiation Oncology in [place], [place] [address] [place] [phone] Remi Lacy M.D. [address] [place] [phone] Rising Prostate Specific Antigen Following Treatment For Malignant Cancer Of Prostate (Primary Dx); Primary Malignant Neoplasm Of Prostate (HCC); Secondary Malignant Neoplasm Bone (HCC) Social History Tobacco Use Types Packs/Day Years Used Date Smoking Tobacco: Never Smokeless Tobacco: Never Alcohol Use Standard Drinks/Week Comments Yes 0 (1 standard drink = 0.6 oz pur e alcohol) [facility] Utilities Answer Date Recorded In the past 12 months has e electric, gas, oil, or water [employer] threatened to shut off services in your [...] Date Recorded Employment status Working with temporary [employer] t[employer] 10/18/2023 Housing Stability Answer Date Recorded What is your living situation today? I have a [facility] place to live 10/18/2023 Sex and Gender Information Value Date Recorded Sex Assigned at Male 07/15/2023 9:06 AM [employer] Gender Identity Male 07/15/2023 9:06 AM [employer] Sexual Orientation Straight 07/15/2023 9: 06 AM [employer] documented as of this encounter Last Filed Vital Signs Vital Sign Reading Time Taken Comments Blood Pressure 129/59 10/21/2023 2:26 PM [employer] Pulse 51 10/21/2023 2:26 PM [employer] Temperature 35.8 ??C (96.4 ??F) 10/21/2023 2:26 PM CS T Respiratory Rate - - Oxygen Saturation - - Inhaled Oxygen Concentration - - Weight 81 kg (178 lb 9.2 oz) 10/21/2023 2:26 PM [employer] Height - - Body Mass Index - - documented in this encounter Medications at Time of Discharge Medication Sig Dispensed Refills Start Date End Date allopurinoL (ZYLOPRIM) 100 mg tablet Take 200 mg by mouth. 10/04/2022 oxyBUTYnin (DITROPAN-XL) 5 mg 24 hr tablet Take 5 mg by mouth. 03/09/2022 predniSONE (DELTASONE) 10 mg tablet Start with 60 mg on day 1, then decrease by one tab daily until gone. 10/18/2023 documented as of this encounter Progress Notes * Ivory Barnard APRN, C.N.P., D.N.P. - 10/21/2023 2:30 PM CST SUBJECTIVE DIAGNOSIS 1. Rising Prostate Specific Antigen Following Treatment For Malignant Cancer Of Prostate 2. Primary Malignant Neoplasm Of Prostate (HCC) 3. Secondary Malignant Neoplasm Bone (HCC) SUPERVISED BY: Remi Lcay MD HISTORY OF PRESENT ILLNESS Richard Marc is a 73 y.o. 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 He completed SBRT to the anterolateral right 3rd rib on July 15, 2023. He returns for follow up. His oncologic history is as follows: Oncology History Primary Malignant Neoplasm Of Prostate (HCC) 10/10/2017 Other PSA progressively rising with most recent being 6.2 ng/mL 10/12/2017 Biopsy/Pathology Final diagnosis A) left prostate biopsy -adenocarcinoma of the prostate -Okolona score 3+3=6 -involving 20-70% of the length of 3 core -PIN4 supports diagnosis B) right prostate biopsy -high-grade prostatic intraepithelial neoplasia, focal C) lesion 1 -adenocarcinoma of the prostate -Okolona 4+3=7 -involving 40-75% of the length of the cores -PIN4 for support diagnosis D) lesion 2 -benign prostatic tissue 10/14/2017 Critical Imaging MR prostate FINDINGS: Prostate: 5.4 x 4.6 x 4.8 cm Estimated volume = 70 cc. 0.8 x 0.7 cm lesion in the left side of the peripheral zone at the level of the apex located 1.4 cmabove the apex and 8 mm left of midline at the 5 o`clock position. PI-RADS 4. Suspicious for prostate cancer. 1.6 x 1.3 cm lesion in the left side of the central gland at the level of the base of the prostate located 9 mm below the bladder neck and 8 mm left of midline at the 1 to 2 o`clock position. PI-RADS 3. Intermediate probability of prostate cancer. No extracapsular extension or seminal vesicle invasion. No pamela-prostatic or pelvic side wall lymph nodes. No other bony or soft tissue abnormalities identified. 01/30/2018 Surgery and Procedures Radical prostatectomy and left pelvic lymph node dissection performed by Dr. Mart Jerome FINAL DIAGNOSIS: A: Prostate gland, robotic radical prostatectomy - Prostatic adenocarcinoma, Mauricio score 4+3 = 7 (grade group 3) - Tumor involving an estimated 5% of the specimen examined - Largest tumor nodule: left lobe, 8 x 5 mm (Mauricio 4+3 = 7) - No evidence of lymphovascular space invasion, perineural invasion, bladder base or seminal vesicle involvement. - No extraprostatic extension seen - Focal high grade prostatic intraepithelial neoplasia present - Margins: Negative for tumor B: Left pelvic lymph nodes, dissection - Two benign lymph nodes PATHOLOGIC STAGE CLASSIFICATION (PTNM, AJCC 8TH EDITION) TNM Descriptors: - m (multiple) Primary Tumor (pT): - pT2 Regional Lymph Nodes (pN): - pN0 04/01/2018 Other Postoperative PSAs were undetectable through February 2019 02/26/2019 Progression/Relapse PSA 0.04 ng/mL 02/26/[address] abdomen and pelvis demonstrated surgically absent prostate gland and seminal vesicles without evidence of recurrent disease 05/31/2019 Other 05/31/2019: PSA 0.07 ng/mL 09/06/2019: PSA 0.12 ng/mL 12/06/2019: PSA 0.10 ng/mL 04/09/2020: PSA 0.11 ng/mL 07/14/2020: PSA 0.13 ng/mL 10/28/2020: PSA 0.15 ng/mL 03/06/2021: PSA 0.27 ng/mL 06/05/2021: PSA 2.99 ng/mL 06/09/2021 Critical Imaging Bone scan negative for any osseous metastases 06/12/2021 Critical Imaging PSA 3.29 ng/mL CT abdomen and pelvis demonstrated interval development of suspicious 1.5 cm low-density left internal iliac lymph node chain concerning for metastatic disease with no other evidence of osseous metastatic disease 07/08/2021 Critical Imaging Axumin PET negative for radiotracer avid metastatic disease. Previously described left internal iliac chain lymph node has slightly decreased in size in the interim and does not show increased radiotracer uptake relative to blood pool or bone marrow activity 07/24/2021 Other 07/24/2021: PSA 2.14 ng/mL 11/06/2021: PSA 0.34 ng/mL 02/23/2022: PSA 0.46 ng/mL 05/14/2022: PSA 0.8 ng/mL 10/19/2022: PSA 0.7 ng/mL 05/11/2023: PSA 1.2 ng/mL 06/06/2023 Critical Imaging PSMA PET-CT demonstrated isolated metastases involving the right anterior lateral 3rd rib without evidence of any other disease 07/11/2023 - 07/15/2023 Radiation Therapy Radiation Therapy Treatment Details (07/11/2023 - 07/15/2023) Site: Right Rib Technique: SBRT Goal: Palliative Planned Treatment Start Date: 07/11/202309/2023 Other 10/05/23: PSA 0.64 ng/mL INTERVAL HISTORY The patient was seen and examined today with Dr. Lacy. The patient reports doing well overall. He reports good energy. He denies pain in his right rib that was previously treated. He was not experiencing pain prior to radiation treatment and he did not experience a pain flare with radiation treatment. He denies any new or persistent pain anywhere else.He reports stable urinary and bowel function with no new changes. His ECOG performance status is 0. REVIEW OF SYSTEMS Review of systems was negative except as documented above. PATIENT REPORTED SYMPTOM SCREEN FATIGUE (Scale: 0 = no fatigue; 10 = worst fatigue you can imagine): 3 PAIN (Scale: 0 = no pain; 10 = worst pain you can imagine): 2 OVERALL QUALITY OF LIFE (Scale: 0 = as bad as can be; 10 = as good as can be): 8 OBJECTIVE BP 129/59 (BP Location: Right arm, Patient Position: Sitting, Cuff Size: Regular) Pulse (!) 51 Temp (!) 35.8 ??C (Temporal) Wt 81 kg PHYSICAL EXAM General: Alert and oriented in no apparent distress. ASSESSMENT / PLAN #1 Stage IIA (pT2a, pN0, cM0, PSA 6.2, Grade Group 3) adenocarcinoma of the prostate s/p prostatectomy on January 30, 2018 with postop undetectable PSAs until February 2019 #2 PSA detectable at 0.4 ng/mL on February 26, 2019; most recent 1.2 ng/mL on May 11, 2023 #3 PSMA PET/CT on June 06, 2023 demonstrated isolated metastases to the anterolateral right 3rd rib #4 SBRT to the anterolateral right 3rd rib initiated on July 11, 2023; completed July 15, 2023 It was a pleasure to meet with Cesar today. He has recovered well overall following radiation treatment. He is not experiencing any long-term side effects at this time. He is not experiencing any new pain flares at this time. We reviewed his most recent PSA results of 0.64 ng/mL and discussed what this means in relation to his prostate cancer. We discussed obtaining a PSMA PET-CT scan now as his PSA is still elevated, or monitoring his PSA in 3 months and possibly obtaining a PSMA PET scan then if it starts to rise. He would like to monitor his PSA in 3 months. He will complete this at [facility] and we will contact him with the results. If his PSA starts to rise again, we will obtain a PSMA PET-CT scan. Patient seen in collaboration with Dr. Lacy, please review his attestation for additional information. He will contact us with questions or concerns. He verbally expressed his understanding of the plan. EDUCATION Ready to learn, no apparent learning barriers were identified; learning preferences include listening. Explained diagnosis and treatment plan; patient expressed understanding of the content. I personally spent 15 minutes in care of the patient today. Time includes both non face to face andface to face patient care. Signed by: Ivory Barnard APRN, C.N.P., Kunal.N.PIvan 10/21/2023 2:50 PM CONCRETE M[employer]ER [employer] [facility] [address] [place] [address] [employer] Associated attestation - Remi Lacy M.D. - 10/21/2023 5:07 PM CONCR[employer]E [employer] I saw and evaluated the patient and participated in the toney portions of the service. I reviewed thedocumentation of Ivory Barnard C.N.P. and agree with the findings and plan. Richard Marc is a 73 y.o. 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 He completed SBRT to the anterolateral right 3rd rib on July 15, 2023. His PSA prior to treatment was 1.2 ng/mL. His PSA on October 05, 2023 was 0.64 ng/mL. The patient appears well on exam. He is here today with his spouse. Unfortunately, the patient's PSA did not become undetectable. He has recovered well from his treatment and is asymptomatic. He may have disease in the prostate bed or elsewhere. We agreed to recheck a PSA in 3 months if his PSA rises, we will obtain a PSMA PET/CT scan. The patient and his spouse verbalized satisfaction with this plan. I have spent 7 minutes caring for this patient including [id number] and ely-dovl-hr-face time. Signed by: Remi Lacy M.D. 10/21/23 5:07 PM CONCRETE M[employer] [facility] Radiation Therapy [facility] documented in this encounter Miscellaneous Notes * Addendum Note - Antonietta Rodriguez C.N.A. - 10/21/2023 2:30 PM CSTEncounter addended by: Antonietta Rodriguez C.N.A. on: 10/24/2023 7:39 AM Actions taken: Letter saved documented in this encounter Plan of Treatment Scheduled Orders Name Type Priority Associated Diagnoses Orde r Schedule PSA (Prostate-Specific Antigen), Diagnostic Lab Routine Rising Prostate Specific Antigen Following Treatment For Malignant Cancer Of Prostate Primary Malignant Neoplasm Of Prostate (HCC) Expected: 01/21/2024 (Approximate), Expires: 01/20/2025 Scheduled Referrals Name Type Priority Associated Diagnoses Order Schedule Radiation Oncology office visit (clinic) Outpatient Referral Routine Once for 1 Occurrences starting 10/21/2023 until 10/21/2023 documented as of this encounter Visit Diagnoses Diagnosis Rising Prostate Specific Antigen Following Treatment For Malignant Cancer Of Prostate- Primary Primary Malignant Neoplasm Of Prostate (HCC) Secondary Malignant Neoplasm Bone (HCC) documented in this encounter
--- OUTSIDE RECORDS SUMMARY | 2023-12-29 12:32 | XMS_ITS | Referral Summary ---
Author Name Unknown Organization [facility] Address [address] [place] [id number] Care Team Providers Care Children'S Ministry Director Name Role Phone Riki Cash Primary Care Provider Unavailabl e Allergies Active Allergy Reactions Criticality Noted Date Comments Amoxicillin-Pot Clavulanate Hives 01/28/20 18 Sulfamethoxazole-Trimethoprim Rash Low 2017 Ciprofloxacin Nausea and Vomiting 01/27/2018 Medications Medication Sig Dispensed Refills Start Date End Date Status HYDROcodone-acetam inophen (NORCO) 5-325 MG per tabletIndications: CA of prostate (H) Take 1 tablet by mouth every 6 hours as needed for moderate to severe pain or severe pain (pain control or improvement in physical function. Hold dose for analgesic side effects.) 10 tablet 01/31/2018 Active senna (SENOKOT) 8.6 MG tabletIndications: CA of prostate (H) Take 1 tablet by mouth 2 times daily as needed for constipation 30 tablet 01/31/2018 Active Active Problems Problem Noted Date Diagnosed Date Advance Care Planning 02/06/2018 CA of prostate 01/30/2018 Social History Tobacco Use Types Packs/Day Years Used Date Smoking Tobacco: Never Smokeless Tobacco: Never Alcohol Use Standard Drinks/Week Comments Yes 0 (1 standard drink = 0.6 oz pur e alcohol) occas Adolescent Education Answer Date Record ed Getting School Help Needed Not on file 05/06 Sex and Gender Information Value Date Recorded Sex Assigned at Not on file Gender Identity Not on file Sexual Orientation Not on file Last Filed Vital Signs Vital Sign Reading Time Taken Comments Blood Pressure 113/62 01/31/2018 11:07 AM CDT Pulse - - Temperature 36.2 ??C (97.1 ??F) 01/31/2018 11:07 AM C DT Respiratory Rate 16 01/31/2018 11:07 AM CDT Oxygen Saturation 93% 01/31/2018 11:07 AM CDT Inhaled Oxygen Concentration - - Weight 82.6 kg (182 lb) 01/31/2018 6:30 AM CDT Height 172.7 cm (5' 8) 01/30/2018 6:06 AM CDT Body Mass Index 27.67 01/30/2018 6:06 AM CDT Plan of Treatment Not on file Advance Directives For more information, please contact: [phone] Documents on File Type Date Recorded Patient Library Page Expl anation Advance Directives and Living Will 02/02/2018 8:41 AM Health Care Directiv e 12/27/2017 * Full Code (Latest Code Status on File) Date Activated Date Inactivated Comments 01/31/2018 8:57 AM * Full Code Date Activated Date Inactivated Comments 01/30/2018 12:51 PM 01/31/2018 8:57 AM Healthcare Agents on File Name Relationship Healthcare Agent Relationship Communication Loyd Marc Significant other Health Care Agent Aranza Marc First Alternate Health Care Agent Care Teams Children[employer] Director Relationship Specialty Start Date End Date Riki Cash PCP - General Family Practice 01/20/18
--- OUTSIDE RECORDS SUMMARY | 2023-12-29 12:32 | XMS_ITS | Clinical Summary ---
Author Name Unknown Organization [facility] Address [address] [place] [address] Care Team Providers Care Oil Program Compliance Specialist Name Role Phone Riki Cash Primary Care [...] 01/30/2018 6:06 AM CDT Plan of Treatment Health Maintenance Due Date Last Done Comments ANNUAL REVIEW OF HM ORDERS 1950 CT COLONOGRAPHY 1950 FLEX SIG 1950 GLUCOSE 1952 sDNA (Cologuard) 1952 COLONOSCOPY 1962 HEPATITIS C SCREENING 1970 LIPID 1992 ZOSTER IMMUNIZATION (1 of 2) 2002 RSV VACCINE ( & 60+) (1 - 1-dose 60+ series) 2012 FALL RISK ASSESSMENT 2017 ADVANCE CARE PLANNING 02/06/2023 02/06/2018, 018 COVID-19 Vaccine ( season) 2023 09/03/2022, 01/13/2022, 07/14/2021, Additional history exists COLORECTAL CANCER SCREENING 05/24/2023 FIT 05/24/2023 05/24/2022 PHQ-2 (once per calendar year) 2023 INFLUENZA VACCINE (Season Ended) 2024 06/13/2014, 06/20/2013, 06/20/2013, Additional history exists DTAP/TDAP/TD IMMUNIZATION (3 - Td or Tdap) 07/25/2033 07/25/2023, 11/16/2011, 04/17/2002 Pneumococcal Vaccine: 65+ Years Completed 10/04/2022, 05/26/2020 HPV IMMUNIZATION Aged Out No longer e ligible based on patient's age to complete this topic IPV IMMUNIZATION Aged Out No longer e ligible based on patient's age to complete this topic MENINGITIS IMMUNIZATION Aged Out No l onger eligible based on patient's age to complete this topic RSV MONOCLONAL ANTIBODY Aged Out No l onger eligible based on patient's age to complete this topic Advance Directives For more information, please contact: [phone] Documents on File Type Date Recorded Patient Lithographer Helper Expl anation Advance Directives and Living Will [...] First Alternate Health Care Agent Care Teams Oil Program Compliance Specialist Relationship Specialty Start Date End Date Riki Cash PCP - General Family Practice 01/20/18
[2023-12-29] MEDS: SODIUM CHLORIDE 0.9 % (FLUSH) 10 ML SYRINGE IVF (12:45)
[2023-12-29] MEDS: LACTATED RINGERS 1000 ML 1,000 ML 100 ML IV (12:45)
[2023-12-29 12:47] VITALS: BP 139/77; PULSE 51; RESP 16; TEMP 36.7; O2SAT 98; BMI 27.1
--- NOTE | 2023-12-29 13:29 | P.GSOP_ITS ---
Operative Note Date of procedure: 12/29/23 Pre-op diagnosis: Right inguinal hernia Post-op diagnosis: Same Type of Procedure: Open right inguinal hernia repair Indications: The patient is a 73-year-old male who developed a right inguinal hernia. He notes that it has become increasingly symptomatic and limited his activity though it is reducible. We discussed options for management and he elected to proceed with repair. Procedure Description: After discussing the risks and benefits of the procedure, the patient signed informed consent.? The operative site was marked and the patient was brought to the operating room and placed on the operating table in supine position.? Care was taken to pad the patient's pressure points.??The patient was then given sedation by anesthesia.??The operative site was then prepped and draped in the usual sterile fashion.? A time-out was then performed. Local anesthetic was injected into the skin and subcutaneous tissue overlying the inguinal canal. An ilioinguinal nerve block was performed. An oblique incision was made over the external ring. Dissection was carried down into the subcutaneous tissue using cautery until the external oblique fascia was encountered. This was cleared off. The external ring was identified and after injection of more local anesthetic, the external oblique was incised using a knife. This was extended using the Metzenbaum scissors with care to dissect the underlying cord structures away from the fascia before cutting. The ilioinguinal nerve was identified. This was gently retracted away from the area of dissection. The cord was cleared from the inside of the inguinal canal and looped with a Brenda drain. A indirect inguinal hernia was identified. The hernia sac was dissected off of the cord structures. The sac was then ligated and the proximal and reduced into the abdomen. Small cord lipoma was also dissected free from the cord structures and excised. A piece of polypropylene mesh was obtained and cut to size. This was secured to the pubic tubercle using to 0 Prolene on a double-armed suture. The Prolene was run along the inguinal ligament inferiorly and along the transversalis fascia superiorly, securing the tails around the cord and re- creating the internal ring. The ring was just large enough to permit my fingertip. The wound was examined for hemostasis which was found to be adequate. The ilioinguinal nerve was examined. It was sitting just at the edge of the mesh tails and while it was not sewn into the mesh, the tissue around it was somewhat tethered to the mesh, causing stretch of the nerve. I gently dissected the tissue around the nerve to attempt to allow it to lay more naturally over the mesh, however, it was quite tethered. Therefore I elected to divide the nerve to avoid entrapment in the mesh. Nerve was sharply divided using a Metzenbaum scissor proximal to the hernia mesh. Local anesthetic was injected around this area. The external oblique fascia was then reapproximated with absorbable suture. The wound was then closed in layers including Ling's fascia and the dermis with absorbable suture. The skin was then closed with a running subcuticular suture. Glue was applied. The testicles were examined to ensure both were within the scrotum. Instrument, sponge, and needle counts were correct at the end of the case. The patient was woken and taken to the PACU in stable condition. ? The patient tolerated the procedure well. Findings: Indirect right inguinal hernia Anesthesia: MAC Surgeon: Shakira De La Paz MD Estimated blood loss (mL): 10 Condition: stable Disposition: PACU
--- NOTE | 2023-12-29 13:37 | W.ANESCHARGE ---
Anesthesia Charges Start Date/Time Anesthesia Start Date: 12/29/23 Anesthesia Start Time: 13:30 Stop Date/Time Anesthesia Stop Date: 12/29/23 Anesthesia Stop Time: 15:13 Summary Extremes of Age - Over 70 or under 1: MDA
[2023-12-29] MEDS: BUPIVACAINE 0.5% 30 ML INJECTION (14:39)
[2023-12-29] MEDS: LIDOCAINE 1 % PF 30 ML INJECTION (15:03)
[2023-12-29 15:10] VITALS: BP 128/84; PULSE 46; RESP 16; TEMP 36.3; O2SAT 93
[2023-12-29 15:15] VITALS: BP 130/74; PULSE 45; RESP 16; O2SAT 95
--- NOTE | 2023-12-29 15:15 | W.ANESCHARGE ---
Anesthesia Charges Start Date/Time Anesthesia Start Date: 12/29/23 Anesthesia Start Time: 13:30 Stop Date/Time Anesthesia Stop Date: 12/29/23 Anesthesia Stop Time: 15:15
[2023-12-29 15:30] VITALS: BP 137/84; PULSE 53; RESP 16; O2SAT 96
[2023-12-29 15:45] VITALS: BP 139/76; PULSE 48; RESP 16; O2SAT 95
== END 2023-12-29 16:08 | disposition home or self-care (01) ==
PROVIDERS: PCP Family Medicine; Visit Provider Surgery
PROC: (CPT 49505; principal; 2023-12-29 13:15)
DX: K40.90 Unilateral inguinal hernia, without obstruction or gangrene, not specified as recurrent (principal)
CPT/HCPCS: 49505; 00830; 99100; C1781; J0665; J1100; J2001; J2250; J2405; J2704; J3010; J3490; J7120

== ENCOUNTER 2024-08-10 18:06 | Emergency (ER) | payer MEDICARE, BC, SELFPAY ==
[2024-08-10 18:08] VITALS: BP 136/84; PULSE 63; RESP 16; TEMP 36.9; O2SAT 98; BMI 27.9
--- OUTSIDE RECORDS SUMMARY | 2024-08-10 18:08 | XMS_ITS | Data Portability ---
Author Organization [place] [facility] Address [address] [place] [address] Care Team Providers Care Commercial Loan Specialist Name Role Phone SHARON WANG Primary Care Provider Assessment No assessment recorded. Plan of Treatment Reminders Order Date Submit Date Provider Last Modified By Organization Details Last Modified Time Details Appointments None recorded. Lab PSA, total, serum or plasma 2022 023 [email or web address] [facility], [address] [place], [address], 3 10:30:08 PSA, serum or plasma 2022 023 [email or web address] 30 [facility], [address], [place], [address], 3 10:27:59 Referral None recorded. Procedures None recorded. Surgeries None recorded. Imaging PET-CT, skull base to mid-thigh scan - PSMA scan; Eyes to thighs 2022 023 [email or web address] 30 [facility], [address], [place], [address], 3 12:26:14 Medication Orders oxybutynin chloride ER 5 mg tablet,exte nded release 24 hr 2022 023 [facility] [address], [address] [facility], [place], [address], 3 16:30:55 Patient TargetsNo targets recorded. Patient InstructionsNo instructions recorded. Reason for Referral None Reported. Results Created Date Observation Date Name Description Value Unit Range Abnormal Flag Note LastModifiedBy Organization Detail LastModifiedTime 05/11/2005/11/2023 PSA, serum or plasm a PSA 1.2ng/ mL 0-4.0 Not Available [facility] [address], [place], [address], 05/11/2023 10:27:48 06/07/2006/06/2023 PET-C T, skull base to mid-t high scan No observ ation record ed. [facility] [address], [place], [address], 06/10/2023 15:21:42 Result Notes None recorded. Problems Name Problem SNOMED Code Status Onset Date Resolution Date Notes Provider Name and Address Organization Details Recorded Time Slowing of urinary stream 73176065 Active 2011 788.62 : SLOW STREAM Not Available [facility] 0 02:05:55 Prostate specific antigen above reference range 723644883 Active 2011 790.93 : ELEVATED PSA Not Available [facility] 0 02:05:55 Malignant tumor of prostate 411220355 Active 2016 C61 : Malignant neoplasm of prostate Not Available [facility] 0 02:05:55 Problem Notes None recorded. Procedures Surgical History Date Name Laterality Status Provider Name and Address Organization Details Recorded Time 05/11/20 Blood Draw/DONOR SERVICES COORDINATOR/PSA RESULTS completed Tori Proctor [facility] 05/11/2023 10:27:44 Prostatectomy completed Nathen [place] MD [address] [facility] [address], [place], [address], [facility] 10/25/2022 16:02:42 Imaging Results Imaging Date Name Status LastModified by Organiz ation Details LastModified Time 06/06/2023 PET-CT, skull base to mid-thigh scan completed Kviar Groupecan [facility] [address], [place], [address], 06/10/2023 15:21:42 Procedure Notes None recorded. Medical Equipment None Reported. Allergies Allergen ID Allergen Name Allergen Category Reaction Reaction Severity Criticality Documentation Date Start Date Code Code System Note Provider Name and Address Organization Details Recorded Time [id number] 2526184p0 2824e Augmentin medicatio n Not available Not available Not available 01/31/20202011 98971 2 RxNorm Not Available Not Available Not Available [id number] 595649752 4219973k3 2824e Cipro medicatio n Not available Not available Not available 01/31/20202017 63029 3 RxNorm Not Available Not Available Not Available [id number] 580408226 0832102p5 2824e sulfameth oxazole / trimethop rim medicatio n Not available Not available Not available 01/31/20202017 61619 RxNorm Not Available Not Available Not Available Medications Name Sig Start Date Stop Date [...] Updated DateTime 10/25/2022 172.72 cm 28.1 kg/m2 47662.59 g Nathen [place] MD [address], [address], [facility] 10/25/2022 16:01:10 Date Recorded Body height Body mass index (BMI) Body weight Provider Name and Address Organization Details Last Updated DateTime 05/11/2023 172.72 cm 28.1 kg/m2 13594.59 g Tori Proctor [facility] 05/11/2023 10:26:55 Social History Question Answer Notes LastModified by Organizat ion Details LastModified Time Tobacco Smoking Status Never Smoker Nathen [place] MD [address] [place] [address],[address], [place], [address], [facility] 10/25/2022 16:02:25 What Is Your Level Of Alcohol Consumption? Occasional Information not available 10/25/2022 What Is Your Level Of Caffeine Consumption? Occasional Information not available 10/25/2022 What Was The Date Of Your Most Recent Tobacco Screening? 05/11/2023 [email or web address] Information not available 05/11/2023 Sex: Unknown Functional Status None recorded. Mental Status None recorded. Family History Relationship Description Onset Age of this Age Resolved Age Notes LastModified by Organization Details LastModified Time Father Family history of stroke [email or web address] Not available 2022 16:02:04 Mother Family history of stroke [email or web address] Not available 2022 16:02:04 Medical History Condition Response Cancer Y Immunizations Vaccine Type Date Status Note Provider Nam e and Address Organization Details Recorded Time Pneumococcal conjugate PCV 13 0 completed Nathen [place] MD [address] [place] [address],[address], [place], [address], [facility] 10/25/2022 16:01:18 COVID-19, mRNA, LNP-S, PF, 30 mcg/0.3 mL dose 1 [facility] 10:27:01 COVID-19, mRNA, LNP-S, PF, 30 mcg/0.3 mL dose 1 completed Tori paredse [facility] 05/11/2023 10:27:01 COVID-19, mRNA, LNP-S, PF, 30 mcg/0.3 mL dose 1 completed Tori paredes [facility] 05/11/2023 10:27:01 Pneumococcal conjugate PCV20, polysaccharide [id number] conjugate, adjuvant, PF 3 completed Tori paredes [facility] 05/11/2023 10:27:01 COVID-19, mRNA, LNP-S, PF, 30 mcg/0.3 mL dose, zoila-sucrose 2 completed Tori Cortezoza [facility] 05/11/2023 10:27:01 COVID-19, mRNA, LNP-S, bivalent, PF, 30 mcg/0.3 mL dose 3 completed Tori Proctor [facility] 05/11/2023 10:27:01 [facility]dap 2 [facility] 10:27:01 Influenza, split virus, trivalent, preservative 7 completed Tori Proctor [facility] 05/11/2023 10:27:01 Influenza, split virus, trivalent, preservative 4 completed Tori Proctor [facility] 05/11/2023 10:27:01 Influenza, split virus, trivalent, preservative 7 completed [place] Pro[place] [facility] 05/11/2023 10:27:01 Influenza, split virus, trivalent, preservative 2 completed Tori Proctor [facility] 05/11/2023 10:27:01 Influenza, split virus, trivalent, preservative 4 completed Tori Proctor [facility] 05/11/2023 10:27:01 Influenza, split virus, trivalent, PF 3 [facility] 05/11/2023 10:27:01 Past Encounters Encounter ID Performer Location Encounter Start Date Encounter Closed Date Diagnosis/Indication Diagnosis SNOMED-CT Code Diagnosis ICD10 Code [id number] MD KAVITA Vazquez[facility] [address] [place] [address] 10/25/2022 15:28:39 10/29/2022 12:55:06 Carcinoma of prostate 419313845 C61 Overactive urinary bladder 670704587 N32.81 Kidney stone 66230715 N2 0.0 Malignant tumor of prostate 931169945 C61 [id number] MD Breanne Vazquez [address] [place] [address] 05/11/2023 09:48:03 05/23/2023 14:38:37 Carcinoma of prostate 770057565 C61 Overactive urinary bladder 933874073 N32.81 Kidney stone 37282084 N2 0.0 Malignant tumor of prostate 690218096 C61 Health Concerns Section Related Observation LastModified by Organization Detai ls LastModified Time None Recorded Concern Status LastModified by Organization Details LastModified Time None Recorded Advance Directives Directive None Recorded Payers Encounter Date Sequence Insurance Name Policy Number Policy Mccauley Covered Member ID Mccauley Member ID Guarantor Name 10/25/2022 1 [place] [id number] Richard Fraire Tari [id number] Richard Marc 05/11/2023 1 [place] [id number] Richard Fraire Tari [id number] Richard Marc Notes Date Note Type Note Provider Name and Address Organization Details Recorded Time 10/25/2022 text/html 72 yo male - dx (11/02/16) with [...] underwent Left ureteroscopy by Dr. Westbrook on 04/12/18.He is on Oxybutynin ER 5 mg daily. - s/p RALP on 01/30/18 - pT2 No Mx - [place] 4+3 = 7 - margins were negative [...] incontinence with sneeze / cough. No erections. __PSA - 6.20 (10/10/17) - < 0.03 (04/11/18)- < 0.03 (07/17/18)- < 0.03 (10/24/18)- 0.04 (02/26/19) - 0.07 (05/31/19)- 0.12 (09/06/19)- 0.10 (12/06/19)- 0.11 (04/09/20)- 0.13 (07/14/20)- 0.15 (10/28/20)- 0.27 (03/06/21)- 2.99 (06/05/21)- 3.29 (06/12/21)- 2.14 (07/24/21)- 0.34 (11/06/21)- 0.46 (02/23/22)- 0.80 (- 0.7 (10/19/22) CT scan (02/26/19) - no stones in either kidneyCT scan (06/12/21) - enlarge (1.5 cm) lymph node by the Left internal iliac artery Axumin PET scan (07/08/21) - negative for radiotracer avid metastatic disease Nathen [place] MD [address] [facility] [address], [place], [address], [place] [facility] 10/25/2022 21:58:17 05/11/2023 text/html 73 yo male - dx (11/02/16) with [...] underwent Left ureteroscopy by Dr. Westbrook on 04/12/18.He is on Oxybutynin ER 5 mg daily. - s/p RALP on 01/30/18 - pT2 No Mx - [place] 4+3 = 7 - margins were negative [...] cough. No erections. - PSA - 1.2 PSA - 6.20 (10/10/17) - < 0.03 (04/11/18)- < 0.03 (07/17/18)- < 0.03 (10/24/18)- 0.04 (02/26/19) - 0.07 (05/31/19)- 0.12 (09/06/19)- 0.10 (12/06/19)- 0.11 (04/09/20)- 0.13 (07/14/20)- 0.15 (10/28/20)- 0.27 (03/06/21)- 2.99 (06/05/21)- 3.29 (06/12/21)- 2.14 (07/24/21)- 0.34 (11/06/21)- 0.46 (02/23/22)- 0.80 (- 0.7 (10/19/22)- 1.2 (05/11/23) CT scan (02/26/19) - no stones in either kidneyCT scan (06/12/21) - enlarge (1.5 cm) lymph node by the Left internal iliac artery Axumin PET scan (07/08/21) - negative for radiotracer avid metastatic disease Nathen [place] MD [address], [place], [address], [place] [facility] 05/11/2023 11:38:10
--- NOTE | 2024-08-10 18:19 | CRLHL7_ITS ---
For Patients: As a result of the Century Cures Act, medical imaging exams and procedure reports are released immediately into your electronic medical record. You may view this report before your referring provider. If you have questions, please contact your health care provider. INDICATION: Trauma. TECHNIQUE: Left knee radiographs, 3 views. COMPARISON: None. FINDINGS: No acute fractures or dislocation. The joint spaces are preserved. No significant joint effusion. No significant soft tissue edema or radiopaque foreign bodies. IMPRESSION: No acute fractures or dislocation. Dictated by Wm Gillis MD @ 08/10/2024 7:47:23 PM (Electronically Signed)
--- NOTE | 2024-08-10 18:22 | ED_ITS ---
HPI - General Adult General Date Seen: 08/10/24 Chief complaint: Extremity Pain/Injury, Lower Stated complaint: pain in left knee, pulled it sideways Time Seen by Provider: 08/10/24 18:07 Source: patient History of Present Illness HPI narrative: Patient is a 74-year-old male who is here for evaluation of left knee pain. He says about 15 minutes prior to arrival his dog got tangled up in his briefcase when he got home and his knee was pulled to the side. Since then he has pain with weight-bearing. Denies other injuries or complaints. Related Data Home Medications ?Medication ?Instructions ?Recorded ?Confirmed allopurinol 100 mg tablet 200 mg PO DAILY 07/25/23 12/29/23 oxybutynin chloride 5 mg 5 mg PO DAILY 07/25/23 12/29/23 tablet,extended release 24 hr Previous Rx's ?Medication ?Instructions ?Recorded hydrocodone 5 mg-acetaminophen 325 1 - 2 tab PO Q6H PRN Pain #20 tabs 12/29/23 mg tablet Allergies Allergy/AdvReac Type Severity Reaction Status Date / Time amoxicillin (From Augmentin) Allergy Unknown Verified 12/29/23 12:46 clavulanic acid (From Allergy Unknown Verified 12/29/23 12:46 Augmentin) sulfamethoxazole (From Allergy Unknown Verified 12/29/23 12:46 Bactrim) trimethoprim (From Bactrim) Allergy Unknown Verified 12/29/23 12:46 indomethacin Allergy leg edema Verified 12/29/23 12:46 ciprofloxacin (From Cipro) AdvReac Mild Vomiting Verified 12/29/23 12:46 PFSH PFSH Medical History (Updated 08/10/24 @ 19:55 by Annabel Garcia MD) History of lipoma ?Z86.018 - Personal history of other benign neoplasm (ICD-10) Ureteral stone with hydronephrosis ?N13.2 - Hydronephrosis with renal and ureteral calculous obstruction (ICD- 10) Urinary tract infection without hematuria ?N39.0 - Urinary tract infection, site not specified (ICD-10) Bradycardia ?R00.1 - Bradycardia, unspecified (ICD-10) CA of prostate ?C61 - Malignant neoplasm of prostate (ICD-10) DIMAS (obstructive sleep apnea) ?G47.33 - Obstructive sleep apnea (adult) (pediatric) (ICD-10) LTBI (latent tuberculosis infection) ?Z22.7 - Latent tuberculosis (ICD-10) Impaired fasting glucose ?R73.01 - Impaired fasting glucose (ICD-10) Sensorineural hearing loss, bilateral ?H90.3 - Sensorineural hearing loss, bilateral (ICD-10) Lipoma of other skin and subcutaneous tissue ?D17.39 - Benign lipomatous neoplasm of skin and subcutaneous tissue of other sites (ICD-10) Overweight ?E66.3 - Overweight (ICD-10) Gout, arthropathy ?M10.9 - Gout, unspecified (ICD-10) Mixed hyperlipidemia ?E78.2 - Mixed hyperlipidemia (ICD-10) Surgical History (Updated 12/28/23 @ 10:35 by Delaney Pathak RN) Hx of prostatectomy ?Z90.79 - Acquired absence of other genital organ(s) (ICD-10) Hx of tonsillectomy ?Z90.89 - Acquired absence of other organs (ICD-10) Status post laser lithotripsy of ureteral calculus ?Z98.890 - Other specified postprocedural states (ICD-10) Hx of hernia repair ?Z98.890 - Other specified postprocedural states (ICD-10) ?Z87.19 - Personal history of other diseases of the digestive system (ICD-10) Hx of colonoscopy ?Z98.890 - Other specified postprocedural states (ICD-10) Social History Smoking Status: Never smoker Do you use any of these nicotine containing products: None Second hand tobacco smoke exposure: No How often do you have a drink containing alcohol: 2-3 times a week How many standard drinks containing alcohol do you have on a typical day: 1 or 2 How often do you have six or more drinks on one occasion: Never AUDIT-C Alcohol total score: 3 Non-prescribed substance use: denies use Caffeine: Yes service: No Exam Narrative: Exam Narrative: Vital signs reviewed In general, and alert, nontoxic male. Extremities: Examination of the left knee shows no visible bruising, swelling, no effusion. No tenderness to palpation. He has fairly good range of motion is able to straight leg raise to about 170?, flexes the knee to just past 90. Has a little bit of pain in the posterior knee with range of motion. Difficulty with weight-bearing secondary to pain. New line skin: Warm dry well perfused. Intact. Const: Vital Signs, click to edit/add: Vital Signs - 24 hr 08/10/24 18:08 Temperature 98.4 F Pulse Rate [Pulse Oximeter] 63 Respiratory Rate 16 Blood Pressure [Ri ght Upper Arm] 136/84 Pulse Oximetry 98 Oxygen Delivery Me thod Room Air Course Course ED Course: Will give him some ice and ibuprofen here as he did not take anything at home. X-rays of the left knee pending. X-rays by my review are negative for fracture or dislocation. Final radiology read read as no acute findings, linked below. Discussed management with him, he would like try crutches. Would recommend conservative therapy at this time with ibuprofen or Tylenol, ice, relative rest, crutches weight-bearing as tolerated. Orthopedic follow-up recommended if not improving with conservative measures over the next few days. Phone number provided. Discussed that x-rays are not perfect, fractures can be missed, and that they do not show injury to soft tissue structures such as ligaments and menisci. Vital Signs Vital signs: Initial Vital Signs Temperature 98.4 F 08/10/24 18:08 Temperature Source Temporal Artery Scan 08/10/24 18:08 Pulse Rate 63 08/10/24 18:08 Respiratory Rate 16 08/10/24 18:08 Blood Pressure 136/84 08/10/24 18:08 Blood Pressure Mean 101 08/10/24 18:08 Blood Pressure Position Sitting 08/10/24 18:08 Pulse Oximetry 98 08/10/24 18:08 Oxygen Delivery Method Room Air 08/10/24 18:08 Vital Signs Temperature 98.4 F 08/10/24 18:08 Pulse Rate 63 08/10/24 18:08 Respiratory Rate 16 08/10/24 18:08 Blood Pressure 136/84 08/10/24 18:08 Pulse Oximetry 98 08/10/24 18:08 Oxygen Delivery Method Room Air 08/10/24 18:08 Temperature 98.4 F 08/10/24 18:08 Pulse Rate 63 08/10/24 18:08 Respiratory Rate 16 08/10/24 18:08 Blood Pressure 136/84 08/10/24 18:08 Pulse Oximetry 98 08/10/24 18:08 Oxygen Delivery Method Room Air 08/10/24 18:08 Medications Administered Medications: Discontinued Medications Generic Name Dose Route Start Last Admin Trade Name Freq PRN Reason Stop Dose Admin Ibuprofen 400 mg 08/10/24 18:19 08/10/24 18:46 Ibuprofen 200 Mg Tablet PO 08/10/24 18:20 400 mg ONCE ONE Administration Medical Decision Making Imaging Data Left knee x-ray: Attestation: I have reviewed the pertinent imaging results. Radiologist's impression: Patient: Richard Marc MR#: [id number] : 1950 Acct:[id number] Loc: ED Service Date: 08/10/[address]: Ordering Physician: Annabel Garcia M.D. Date of Service: 08/10/24 Procedure(s): XR knee LT 3V Accession Number(s): [id number] cc: Annabel Garcia M.D.; Bambi Patricio M.D.~ For Patients: As a result of the Cures Act, medical imaging exams and procedure reports are released immediately into your electronic medical record. You may view this report before your referring provider. If you have questions, please contact your health care provider. INDICATION: Trauma. TECHNIQUE: Left knee radiographs, 3 views. COMPARISON: None. FINDINGS: No acute fractures or dislocation. The joint spaces are preserved. No significant joint effusion. No significant soft tissue edema or radiopaque foreign bodies. IMPRESSION: No acute fractures or dislocation. Dictated by Wm Gillis MD @ 08/10/2024 7:47:23 PM Discharge Plan Discharge Clinical Impression: Injury of knee, left Patient Disposition: Home, Self-Care Condition: Stable Instructions: Crutch Instructions (ED), Knee Pain (ED) Additional Instructions: Your x-rays today are normal. This does not rule out a ligamentous injury, but there is no evidence of fracture or fluid in the joint. I would recommend weight-bearing as tolerated, ice, Tylenol or ibuprofen. If you are not finding that you are improving with conservative measures then orthopedic follow-up would be reasonable. Please call [phone] if needed to schedule. Prescriptions: No Action allopurinol 100 mg tablet 200 mg PO DAILY oxybutynin chloride 5 mg tablet extended release 24hr 5 mg PO DAILY hydrocodone-acetaminophen 5-325 mg Tablet 1 - 2 tab PO Q6H PRN (Reason: Pain) Qty: 20 0RF Follow Up/Referrals: Bambi Patricio MD [Primary Care Provider] - Stand Alone Forms: [employer] Info Instructions
[2024-08-10] MEDS: IBUPROFEN 200 MG TABLET 400 MG PO (18:46)
== END 2024-08-10 20:07 | disposition home or self-care (01) ==
PROVIDERS: Emergency Provider Emergency Medicine; PCP Family Medicine
DX: M25.562 Pain in left knee (principal)
CPT/HCPCS: 73562; 99283; A9270

== ENCOUNTER 2024-09-12 09:45 | Outpatient (RCR) | payer MEDICARE, BC, SELFPAY | END 2025-01-10 23:59 | disposition home or self-care (01) | PROVIDERS: PCP Family Medicine; Visit Provider Physician Assistant Surgical | DX: S89.92XA Unspecified injury of left lower leg, initial encounter (principal); Z51.89 Encounter for other specified aftercare | CPT/HCPCS: 97110; 97116; 97161 ==

== ENCOUNTER 2024-10-15 07:12 | Day surgery (SDC) | payer MEDICARE, BC, SELFPAY ==
[2024-10-15] VITALS (13 sets, daily range): BP systolic 102–128; BP diastolic 57–84; PULSE 41–55; RESP 12–16; TEMP 36.4–36.6; O2SAT 95–99; BMI 28.2
[2024-10-15] MEDS: CEFAZOLIN 2 GM in 0.9 % SODIUM CHLORIDE Mini-bag 100 ML IVPB (07:15)
[2024-10-15] MEDS: LACTATED RINGERS 1000 ML 1,000 ML 100 ML IV ×2 (07:25→10:07)
[2024-10-15] MEDS: SODIUM CHLORIDE 0.9 % (FLUSH) 10 ML SYRINGE IVF (07:33)
--- NOTE | 2024-10-15 07:47 | W.PM.H&PU ---
History & Physical Update History & Physical Update H&P Reviewed and patient assessed: No changes noted
[2024-10-15] MEDS: BUPIVACAINE 0.5% 30 ML INJECTION (10:05)
--- NOTE | 2024-10-15 10:11 | PM.ORPRC ---
Procedure Note Date of procedure: 10/15/24 Procedure: PREOPERATIVE DIAGNOSIS: 1. Right knee medial meniscus tear - posterior meniscus root POSTOPERATIVE DIAGNOSIS: 1. Right knee medial meniscus tear - posterior meniscus root with extension into the posterior horn in a complex manner. 2. 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 Right knee lateral meniscus tear of posterior horn, central, low-grade, degenerative type tear. PROCEDURE: 1. Right knee arthroscopic partial medial and lateral meniscectomy 2. Right knee arthroscopic chondroplasty loose chondral flaps trochlear groove SURGEON: Kiet Estrada M.D. PATIENT SERVICE COORDINATOR: GRAY Sue. Of note, an family and divorce legal assistant was critical for this case to aid in patient positioning, knee manipulation, instrument exchange, and closure. ANESTHESIA: Spinal EBL: 5ml TOURNIQUET: 30 min at 250 torr COMPLICATIONS: None evident INDICATIONS: The patient is a pleasant 74-year-old male who has experienced right knee pain particularly with any twisting or turning. Physical exam was concerning for medial meniscus tear, this was confirmed on MRI. Additionally, attempted nonoperative management has been tried, and failed. Thus, surgery was recommended. FINDINGS: Full-thickness chondral loss trochlear groove in intermittent locations. Grade 2-3 chondromalacia patella. Grade 3 chondromalacia medial femoral weight-bearing portion and grade 2 chondromalacia medial tibial plateau. Complex tearing posterior horn including primarily a radial type tear of the posterior root region but extension into the posterior horn around approaching the midbody area with degenerative yellowing of the meniscus tissue. Lateral meniscus also showed tearing of the posterior horn in the central portion a low-grade degenerative manner again was some yellowing to the tissue. ACL and PCL intact. DESCRIPTION OF PROCEDURE: After a thorough discussion of risks, benefits, and alternatives, the patient was brought to the operating room and placed upon the operating table. Induction of anesthesia was undertaken as previously noted. 2g iv Ancef was administered within 1 hr of incision preoperatively. Appropriate time-out was performed identifying proper patient, site, and procedure. The right lower extremity was prepped and draped in the appropriate sterile fashion using ChloraPrep. The limb was exsanguinated and tourniquet inflated. Anterolateral and anteromedial portals were established with an 11 blade, and a diagnostic arthroscopy was performed. This identified the findings as noted above. Following the diagnostic arthroscopy, a partial medial and lateral menisectomy was performed with the combination of basket forceps and a motorized shaver. Following this, the meniscus was re-probed and found to be stable. Approximately 25-33 % of the overall medial meniscus required resection and less than 10% of the overall lateral meniscus was resected. The torpedo shaver was also utilized for chondroplasty of the loose chondral flaps in the trochlear groove as well. At this stage, the shaver was reinserted into the suprapatellar pouch and all remaining meniscal debris was evacuated. Instruments were removed, excess fluid was drained, and closure performed with 4-0 Monocryl with Steri-Strips. Dressings were applied, the tourniquet deflated, and the patient was awoken from anesthesia and transferred to the PACU in stable condition. PLAN: 1. Weightbear as tolerated operative extremity. Crutch / walker ambulation assistance PRN. 2. Ice, acetominophen and/or ibuprofen, and Oxycodone for pain as needed. 3. Knee range of motion and quad sets/straight leg raise regularly 4. Follow up with PA visit in 1-2 weeks for a wound check and possibly to initiate physical therapy.
--- NOTE | 2024-10-15 10:21 | W.ANESCHARGE ---
Anesthesia Charges Start Date/Time Anesthesia Start Date: 10/15/24 Anesthesia Start Time: 09:14 Stop Date/Time Anesthesia Stop Date: 10/15/24 Anesthesia Stop Time: 10:19 Summary Extremes of Age - Over 70 or under 1: BIN FILLER Coding CPT Codes CPT Codes: ANESTH KNEE JOINT SURGERY - 41442 ([id number]) P2 - PATIENT W/MILD SYST DISEASE, QX - BIN FILLER SVC W/ MD MED DIRECTION, QK - POPCORN MACHINE OPERATOR 2-4 CNCRNT ANES PROC Additional Codes: Summary - Extremes of Age - Over 70 or under 1: BIN FILLER ([id number])
--- NOTE | 2024-10-15 10:22 | W.ANESCHARGE ---
Anesthesia Charges Start Date/Time Anesthesia Start Date: 10/15/24 Anesthesia Start Time: 09:14 Stop Date/Time Anesthesia Stop Date: 10/15/24 Anesthesia Stop Time: 10:19 Summary Extremes of Age - Over 70 or under 1: MDA Coding CPT Codes CPT Codes: ANESTH KNEE JOINT SURGERY - 55124 ([id number]) P2 - PATIENT W/MILD SYST DISEASE, QK - [employer]ICE WORKER SPRING 2-4 CNCRNT ANES PROC, QX - PHYSIOGNOMIST SVC W/ MD MED DIRECTION Additional Codes: Summary - Extremes of Age - Over 70 or under 1: MDA ([id number])
--- NOTE | 2024-10-16 14:11 | PM.ORPRC ---
Procedure Note Date of procedure: 10/15/24 Procedure: PREOPERATIVE DIAGNOSIS: 1. Left knee medial meniscus tear - posterior meniscus root POSTOPERATIVE DIAGNOSIS: 1. Left knee medial meniscus tear - posterior meniscus root with extension into the posterior horn in a complex manner. 2. 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 Left knee lateral meniscus tear of posterior horn, central, low-grade, degenerative type tear. PROCEDURE: 1. Left knee arthroscopic partial medial and lateral meniscectomy 2. Left knee arthroscopic chondroplasty loose chondral flaps trochlear groove SURGEON: Kiet Estrada M.D. SKILLS AUDITOR: GRAY Sue. Of note, an administrative support assistant was critical for this case to aid in patient positioning, knee manipulation, instrument exchange, and closure. ANESTHESIA: Spinal EBL: 5ml TOURNIQUET: 30 min at 250 torr COMPLICATIONS: None evident INDICATIONS: The patient is a pleasant 74-year-old male who has experienced left knee pain particularly with any twisting or turning. Physical exam was concerning for medial meniscus tear, this was confirmed on MRI. Additionally, attempted nonoperative management has been tried, and failed. Thus, surgery was recommended. FINDINGS: Full-thickness chondral loss trochlear groove in intermittent locations. Grade 2-3 chondromalacia patella. Grade 3 chondromalacia medial femoral weight-bearing portion and grade 2 chondromalacia medial tibial plateau. Complex tearing posterior horn including primarily a radial type tear of the posterior root region but extension into the posterior horn around approaching the midbody area with degenerative yellowing of the meniscus tissue. Lateral meniscus also showed tearing of the posterior horn in the central portion a low-grade degenerative manner again was some yellowing to the tissue. ACL and PCL intact. DESCRIPTION OF PROCEDURE: After a thorough discussion of risks, benefits, and alternatives, the patient was brought to the operating room and placed upon the operating table. Induction of anesthesia was undertaken as previously noted. 2g iv Ancef was administered within 1 hr of incision preoperatively. Appropriate time-out was performed identifying proper patient, site, and procedure. The left lower extremity was prepped and draped in the appropriate sterile fashion using ChloraPrep. The limb was exsanguinated and tourniquet inflated. Anterolateral and anteromedial portals were established with an 11 blade, and a diagnostic arthroscopy was performed. This identified the findings as noted above. Following the diagnostic arthroscopy, a partial medial and lateral menisectomy was performed with the combination of basket forceps and a motorized shaver. Following this, the meniscus was re-probed and found to be stable. Approximately 25-33 % of the overall medial meniscus required resection and less than 10% of the overall lateral meniscus was resected. The torpedo shaver was also utilized for chondroplasty of the loose chondral flaps in the trochlear groove as well. At this stage, the shaver was reinserted into the suprapatellar pouch and all remaining meniscal debris was evacuated. Instruments were removed, excess fluid was drained, and closure performed with 4-0 Monocryl with Steri-Strips. Dressings were applied, the tourniquet deflated, and the patient was awoken from anesthesia and transferred to the PACU in stable condition. PLAN: 1. Weightbear as tolerated operative extremity. Crutch / walker ambulation assistance PRN. Straight leg raise to be initiated starting tomorrow by the patient. 2. Ice, acetominophen and/or ibuprofen, and Oxycodone for pain as needed. 3. Knee range of motion and quad sets/straight leg raise regularly 4. Follow up with PA visit in 7-10 days. for a wound check. Initiate physical therapy at that time
== END 2024-10-15 12:09 | disposition home or self-care (01) ==
LOC: OR 07:13
PROVIDERS: PCP Family Medicine; Visit Provider Orthopaedic Surgery Sports Medicine
PROC: (CPT 29882; principal; 2024-10-15 09:00)
DX: S83.232A Complex tear of medial meniscus, current injury, left knee, initial encounter (principal); S83.282A Other tear of lateral meniscus, current injury, left knee, initial encounter; M22.42 Chondromalacia patellae, left knee
CPT/HCPCS: 29880; 01400; 99100; J0665; J0690; J1100; J1885; J2704; J3010; J7120; L1833

== ENCOUNTER 2024-11-15 10:00 | Outpatient (RCR) | payer MEDICARE, BC, SELFPAY ==
--- NOTE | 2024-10-22 11:05 | PT.OPEX ---
PT [place] Outpatient Eval PT [facility] Outpatient Eval Start: 10/22/24 07:20 Freq: Status: Active Protocol: Document 10/22/24 09:36 SUMIT (Rec: 10/22/24 11:01 SUMIT [id number]) E-signed By Alberto Mishra PT Physical Therapy Outpatient Evaluation Insurance Information Insurance Name Medicare B,[employer] Medical Diagnosis Left knee Arthroscope (10/15/24) Medial and Lateral meniscectomy Chondroplasty Treating Diagnosis Left knee pain Decreased left knee ROM Quad weakness Referring MD Sean Subjective Subjective 74 year old male who underwent left knee arthroscopic surgery on 10/15/24 for medial and lateral meniscectomy and chondroplasty due to meniscal tears and chondromalacia issues. He had an injury at home on 08/10/24 when his dog ran into him causing meniscal tears and instability/ dysfunction. Prior to the injury he did have some knee discomfort and dysfunction from the chondromalacia and degenerative changes. No hip or ankle issues are noted. He wishes to be able to walk his dog daily and be able to walk, squat and navigate steps without difficulty with postsurgical rehab. Pain Comments 4 Date of Next Physician Visit 10/23/24 Date of Surgery (If applicable) 10/15/24 Current Work Status Unemployed Occupation Laid off recently from job at [employer] doing Medium work. Precautions Treatment Precautions/Contraindications PMH includes prostate CA, mild left knee dysfunction, and allergies Weight Bearing Status Weight Bear as Tolerated Objective Other/Pertinent Objective Gait: mild/ mod limp on left with shortened stance left and shortened stride right. Posture: wNL Knee ROM: 3-100 deg versus 0- 140 right AROM. quad strength: 3/5 left versus 5/5 right Swelling: mild left knee suprapatellar swelling Hip ROM: WFL bilat. Core strength: WFL Assessment Assessment/Impression 74 year old male S/P left knee arthroscopic surgery for medial and lateral meniscectomy along with chondroplasty due to chondromalacia issues. He demonstrates the expected loss of left knee ROM, quad weakness, imbalance, and impaired gait with limp following arthroscope on . He would benefit from skilled therapy working on restoring left knee ROM, quad strength, core strengthening, and gait training. Primary Functional Limitations walking, walking dog, steps, squatting Plan of Care Rehabilitation Potential Excellent Physical Therapy Goals 1. Pt. will be indep. with HEP for self maintenance in 8 weeks. 2. Pt. will be able to walk without a limp in 8 weeks. 3. Pt. will demonstrate improved quad strength to 5/5 in 8 weeks. 4. Pt. will demonstrate functional knee AROM to allow regular ADL's in 8 weeks. Coordination/Communication With Referral Source Treatment Plan/Direct Interventions Manual Therapy,Neuromuscular Re-ed,Self-Care/Home Management,Therapeutic Exercises Frequency/Duration Weekly to every other week for 4-6 visits. Patient Will Be Discharged From Therapy Independent w/HEP, Independently Progressing Evaluation Billing Complexity Low Certification Information Initial Certification Date 10/22/24 Ending Certification Date 01/20/25 Provider Signature Required Yes Provider Signature Shows Agreement With POC & Medical Necessity Physician NPI Number Write NPI# Here Physician Comment/Change : Physician Signature & Date Requested Please Sign/Date Here
== END 2025-01-21 10:46 | disposition home or self-care (01) ==
PROVIDERS: PCP Family Medicine; Visit Provider Orthopaedic Surgery Sports Medicine
DX: Z47.1 Aftercare following joint replacement surgery (principal); M25.562 Pain in left knee; Z51.89 Encounter for other specified aftercare
CPT/HCPCS: 97110; 97112; 97161